=== PATIENT | male | born 1950 | race Caucasian/White ===

== ENCOUNTER 2021-11-12 08:49 | Emergency (ER) | payer MEDICARE ==
[~2021-11-12] VITALS: Ht 177.8 cm; Wt 85.7 kg
--- NOTE | 2021-11-12 09:56 | PHYS DOC ---
"Past Medical History Past Medical History: Diabetes-Type II, Heart Disease, Hypertension Past Surgical History: Coronary Bypass Surgery Additional Past Surgical Histo: intestinal surgery at age 1 Drug Use: None General Adult EDM: Chief Complaint: MECHANICAL FALL HPI: HPI: Patient is a 71 year old male who presents with right periorbital swelling status post mechanical fall yesterday. Patient rates his pain 2/10 and achy in nature. It is nonradiating isolated to the left orbit. Yesterday, patient states he was using a gardening tool to get a piece of trash out of some bushes/weeds. He reports he was able to get the trash out of the yard, however he fell forward. His glasses were on when he fell, but he does not know where they are anymore. He believes that the glasses contused his face. Patient takes daily aspirin, but otherwise does not take blood thinners. Patient's past medical history includes diabetes, hypertension, coronary artery disease. Amanda ent denies dizziness, lightheadedness, frequent falls, abdominal pain, NVD, hematuria, dysuria. Review of Systems: Review of Systems: Constitutional: Denies fever or chills. Eyes: See HPI HENT: Denies nasal congestion or sore throat. Respiratory: Denies cough or shortness of breath. Cardiovascular: Denies chest pain or edema. GI: See HPI : See HPI Musculoskeletal: Denies back pain or joint pain. Integument: Denies rash or other skin lesions. Neurologic: Denies headache, focal weakness or sensory changes. Heart Score: C/O Chest Pain: No Physical Exam: PE: Constitutional: Well developed, well nourished, no acute distress, non-toxic appearance. HENT: Normocephalic, bilateral external ears without deformity or ecchymosis, oropharynx moist, no oral exudates, nose without deformity or discharge. Eyes: Significant periorbital swelling noted on the right side without crepitus or subcutaneous emphysema, PERRLA, EOMI, conjunctiva normal, no discharge. Neck: Normal range of motion, no step-offs, no midline tenderness, no paraspinal tenderness, no stridor. Cardiovascular: Heart rate regular rhythm, no obvious murmur. Lungs & Thorax: Bilateral breath sounds clear to auscultation. Skin: Warm, dry, no erythema, no rash, no abrasion, no laceration. Back: No step-off, no tenderness, no CVA tenderness. Extremities: No tenderness, no cyanosis, no clubbing, ROM intact, no edema. Neurologic: Alert and oriented x4, no focal deficits noted. Current Patient Data: Vital Signs: Vital Signs Date Time Temp Pulse Resp B/P (MAP) Pulse Ox O2 Delivery O2 Flow Rate FiO2 11/12/21 11:30 84 18 155/73 (100) 96 Room Air 11/12/21 11:00 86 18 148/71 (96) 96 Room Air 11/12/21 10:18 88 18 166/77 (106) 95 Room Air 11/12/21 09:48 98 18 130/76 (94) 96 Room Air 11/12/21 09:45 98.0 95 17 179/81 (113) 98 Room Air 98.0 Radiology/Procedures: Radiology/Procedures: PROCEDURE: CT ORBITS WO CONTRAST PQRS Compliance Statement: One or more of the following individualized dose reduction techniques were utilized for this examination: 1. Automated exposure control 2. Adjustment of the mA and/or kV according to patient size 3. Use of iterative reconstruction technique CT HEAD AND C-SPINE WO, CT ORBITS/SELLA WITHOUT CONTRAST Clinical Indication: Reason: fall / Spl. Instructions: / History: Comparison: None. Procedure: Axial images are obtained of the head from the skull base through the vertex without IV contrast. Noncontrast helical CT of the cervical spine was performed. Axial, sagittal, and coronal reconstructions were obtained. Helical CT imaging of the facial bones is performed without IV contrast. Findings: The ventricles and sulci are prominent, consistent with age-related cerebral atrophy. There is periventricular white matter hypoattenuation. This is a nonspecific finding but is commonly due to chronic small vessel ischemic disease in a patient of this age. There is a small old infarct of the left frontal lobe. There is prominent perivascular space versus old lacunar infarct in the right basal ganglia. No mass-effect, midline shift, hemorrhage or obvious acute infarction is identified. Basilar cisterns are patent. Bone windows demonstrate no significant calvarial abnormality. The globes are intact. There is subcutaneous air of the right cheek and the preseptal right orbit. There is acute hemorrhage in the right maxillary sinus. There is mild right orbit post septal air. There is acute traumatic fracture of the right orbital floor measuring approximately 9 mm AP and 6 mm transverse. The fracture is depressed approximately 3 mm. The pterygoid plates and zygomatic arches are intact. There is mucosal thickening of the left maxillary and bilateral ethmoid sinuses. Mastoid air cells are well aerated. There is no evidence of acute fracture or acute malalignment of the cervical spine. There are no perched or jumped facet joints. The facet joints are mildly hypertrophic. The vertebral body height and alignment are maintained. Mild degenerative endplate spurring. The disc spaces are without significant narrowing. Small ossification along the nuchal ligament. There is thyroid goiter mainly on the right with deviation of the trachea to the left. The thyroid is incompletely imaged. The visualized lung apices are clear. IMPRESSION: 1. No acute intracranial abnormality. 2. No acute fracture of the cervical spine. 3. There is acute traumatic fracture of the right orbital floor. The globes are intact. There is mild post septal and severe preseptal right orbit subcutaneous air. 4. Right thyroid goiter, incompletely imaged. Electronically signed by: Emory Murphy MD (11/12/2021 11:25 AM) [id number] Course & Med Decision Making: Course & Med Decision Making Pertinent Labs and Imaging studies reviewed. (See chart for details) Patient is a 71-year-old male who experienced a mechanical fall yesterday, who now has significant right-sided periorbital swelling. Work-up today will include CT head and neck, as well as orbits. CT images show a right-sided orbital floor fracture measuring 9 mm x 6 mm, displaced by 3 mm. Placed a call to ophthalmology for consult, who recommended speaking to Dr. Bhaskar Dumont. Dr. Dumont is an oculoplastic specialist. Dr. Dumont does not have available appointments in the next week. Contacted [facility] and left a message regarding patient referral. Treatment plan will include prophylactic antibiotic treatment with Keflex twice daily x7 days as well as pain control with Tylenol. Patient given return precautions. Patient and his at bedside understand and are agreeable to discharge plan. After patient left the department, I was able to schedule an appointment with [facility] in [place], [place]. They will see him on Monday11/15/21 at 0915. Patient was made aware of time and location of appointment for follow up, and agrees to attend appointment. [place] Disclaimer: [place] Disclaimer: This electronic medical record was generated, in whole or in part, using a voice recognition dictation system. Departure Departure Impression: Primary Impression: Orbital floor fracture Qualified Codes: S02.31XA - Fracture of orbital floor, right side, initial encounter for closed fracture Disposition: HOME / SELF CARE / HOMELESS Condition: STABLE Patient Instructions: Orbital Floor Fracture, Blowout Additional Instructions: [facility] [address] | [place] [address] [address] [facility], [address] | [place] [address] [facility] [address], [place], [address] P: [phone] [place] [address] [facility] [address] [place] [address] P: [phone] [place] [address] [place] [address] P: [phone] Scripts Cephalexin (CEPHALEXIN) 500 Mg Tablet 1 TAB PO BID for 7 Days, #14 TAB Prov: BESSY SINGH 11/12/21 BESSY SINGH Nov 12, 2021 09:56"
--- NOTE | 2021-11-12 11:28 | RAD ---
PQRS Compliance Statement: One or more of the following individualized dose reduction techniques were utilized for this examinat ion: 1. Automated exposure control 2. Adjustment of the mA and/or kV according to patient size 3. Use of iterative reconstruction technique CT HEAD AND C-SPINE WO, CT ORBITS/SELLA WITHOUT CONTRAST Clinical Indication: Reason: fall / Spl. Instructions: / History: Comparison: None. Procedure: Axial images are obtained of the head from the skull base through the vertex without IV co ntrast. Noncontrast helical CT of the cervical spine was performed. Axial, sagittal, and coronal rec onstructions were obtained. Helical CT imaging of the facial bones is performed without IV contrast. Findings: The ventricles and sulci are prominent, consistent with age-related cerebral atrophy. There is periv entricular white matter hypoattenuation. This is a nonspecific finding but is commonly due to chroni c small vessel ischemic disease in a patient of this age. There is a small old infarct of the left fr ontal lobe. There is prominent perivascular space versus old lacunar infarct in the right basal gangl ia. No mass-effect, midline shift, hemorrhage or obvious acute infarction is identified. Basilar cistern s are patent. Bone windows demonstrate no significant calvarial abnormality. The globes are intact. There is subcutaneous air of the right cheek and the preseptal right orbit. Th ere is acute hemorrhage in the right maxillary sinus. There is mild right orbit post septal air. Ther e is acute traumatic fracture of the right orbital floor measuring approximately 9 mm AP and 6 mm tra nsverse. The fracture is depressed approximately 3 mm. The pterygoid plates and zygomatic arches are intact. There is mucosal thickening of the left maxillary and bilateral ethmoid sinuses. Mastoid air cells ar e well aerated. There is no evidence of acute fracture or acute malalignment of the cervical spine. There are no perched or jumped facet joints. The facet joints are mildly hypertrophic. The vertebral body height and alignment are maintained. Mild degenerative endplate spurring. The disc spaces are wi thout significant narrowing. Small ossification along the nuchal ligament. There is thyroid goiter mainly on the right with deviation of the trachea to the left. The thyroid is incompletely imaged. The visualized lung apices are clear. IMPRESSION: 1. No acute intracranial abnormality. 2. No acute fracture of the cervical spine. 3. There is acute traumatic fracture of the right orbital floor. The globes are intact. There is mil d post septal and severe preseptal right orbit subcutaneous air. 4. Right thyroid goiter, incompletely imaged. Electronically signed by: Emory Murphy MD (11/12/2021 11:25 AM) [id number]
[2021-11-12 11:30] VITALS: BP 155/73
[2021-11-12] MEDS ORDERED: CEPH500T PO (12:02)
== END 2021-11-12 12:41 | disposition home or self-care (01) ==
LOC: ER 08:49
DX: S02.31XA Fracture of orbital floor, right side, initial encounter for closed fracture (principal); I11.9 Hypertensive heart disease without heart failure; E11.9 Type 2 diabetes mellitus without complications; E04.9 Nontoxic goiter, unspecified; Z95.1 Presence of aortocoronary bypass graft; I25.10 Atherosclerotic heart disease of native coronary artery without angina pectoris; W18.39XA Other fall on same level, initial encounter; Y93.89 Activity, other specified; Y92.89 Other specified places as the place of occurrence of the external cause; Y99.8 Other external cause status
CPT/HCPCS: 70450; 70480; 72125; 99284-25

== ENCOUNTER 2021-11-17 01:01 | Inpatient (IN) | payer MEDICARE ==
[~2021-11-17] VITALS: Ht 172.7 cm; Wt 65.0 kg
[~2021-11-17 01:01] MED LIST: CEPH500T PO
[2021-11-17 01:29] LABS: BASO % 0 % (0-3); EOS % 0 % (0-3); HEMATOCRIT 40.5 % (39.0-53.0); HEMOGLOBIN 13.8 g/dL (13.0-17.5); LYMPH # 1.2 x10^3/uL (1.0-4.8); LYMPH % 8 % (24-48); MEAN CORPUSCULAR HEMOGLOBIN 31 pg (25-35); MEAN CORPUSCULAR HGB CONC 34 g/dL (31-37); MEAN CORPUSCULAR VOLUME 90 fL (79-100); MONO # 0.6 x10^3/uL (0.0-1.1); MONO % 4 % (0-9); NEUT # 14.2 x10^3/uL (1.8-7.7); NEUT % 88 % (31-73); PLATELET COUNT 256 x10^3/uL (140-400); RED BLOOD COUNT 4.48 x10^6/uL (4.30-5.70); RED CELL DISTRIBUTION WIDTH 12.8 % (11.5-14.5); WHITE BLOOD COUNT 16.2 x10^3/uL (4.0-11.0)
[2021-11-17] MEDS ORDERED: IV NORMAL SALINE 1000ML BAG 1,000 ML IV ONE (01:30)
[2021-11-17] MEDS ORDERED: ONDANSETRON PF 4 MG/2 ML VIAL. IVP ONE (01:30)
[2021-11-17 01:40] LABS: CALCIUM 10.3 mg/dL (8.5-10.1); CREATININE 1.5 mg/dL (0.7-1.3); GFR 45.9; POTASSIUM 3.6 mmol/L (3.5-5.1)
[2021-11-17 01:45] LABS: ALBUMIN 3.7 g/dL (3.4-5.0); ALBUMIN/GLOBULIN RATIO 0.9 (1.0-1.7); TOTAL BILIRUBIN 0.6 mg/dL (0.2-1.0); TOTAL PROTEIN 7.7 g/dL (6.4-8.2)
[2021-11-17] MEDS ORDERED: CONTRAST GIVEN. MC PRN (02:00)
[2021-11-17 02:03] LABS: % LYMPHS 7 % (24-48); % MONOS 4 % (0-10); % SEGS 89 % (35-66); PLT ESTIMATE ADEQUATE (ADEQUATE); TOXIC GRANULATION SLIGHT
[2021-11-17 02:14] LABS: INFLUENZA A PATIENT NEGATIVE (NEGATIVE); INFLUENZA B PATIENT NEGATIVE (NEGATIVE)
[2021-11-17 02:29] LABS: PROTHROMBIN TIME PATIENT 13.3 SEC (11.7-14.0)
[2021-11-17] MEDS ORDERED: IOHEXOL 300 MG/ML 100ML VIAL. IV ONE (02:30)
[2021-11-17] MEDS ORDERED: PROCHLORPERAZINE 10 MG/2 ML VIAL. IV ONE (02:30)
[2021-11-17] MEDS ORDERED: diphenhydrAMINE 50 MG/ML VIAL IVP ONE (02:30)
[2021-11-17] MEDS ORDERED: IV NORMAL SALINE 500ML BAG 500 ML IV ONE (03:00)
--- NOTE | 2021-11-17 03:19 | RAD ---
EXAM: CHEST ONE VIEW. HISTORY: Altered mental status, weakness. COMPARISON: None. FINDINGS: A frontal view of the chest is obtained. There are changes of coronary artery bypass grafti ng. 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 There is mild atelectasis in the left base. There is no pneumothorax or pleural effusion. The heart i s not enlarged. IMPRESSION: 1. 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 Correlate for such history. 2. Mild left basilar atelectasis or infiltrate Electronically signed by: Miguelina Smith MD (11/17/2021 3:17 AM) [facility]
--- NOTE | 2021-11-17 03:24 | RAD ---
EXAM: CT HEAD WITHOUT CONTRAST. HISTORY: Altered mental status, weakness. TECHNIQUE: Computed tomography of the head was performed without intravenous contrast. One or more of the following individualized dose reduction techniques were utilized for this examination: 1. Automated exposure control. 2. Adjustment of the mA and/or kV according to patient size. 3. Use of iterative reconstruction technique. COMPARISON: 11/12/2021. FINDINGS: There is no intracranial hemorrhage. There are chronic lacunar infarcts within the right ba aravind ganglia. There is mild chronic microangiopathic white matter change elsewhere. Prominence of the lateral ventricles and hemispheric sulci indicates moderate atrophy. Mucus retention cysts are noted in the right maxillary sinus. Right orbital emphysema is decreased si nce the prior study. The temporal bones are unremarkable. The calvarium reveals no suspicious lesions . There are atherosclerotic calcifications of the internal carotid and vertebral arteries. IMPRESSION: 1. No acute intracranial findings. 2. Chronic right basal ganglia lacunar infarcts. Moderate atrophy. Electronically signed by: Miguelina Smith MD (11/17/2021 3:21 AM) [facility]
--- NOTE | 2021-11-17 03:59 | RAD ---
EXAM: CT ABDOMEN/PELVIS WITH CONTRAST. HISTORY: Altered mental status, upper abdominal pain, weakness. TECHNIQUE: Computed tomography of the abdomen and pelvis was performed after the intravenous administ ration of iodinated contrast. One or more of the following individualized dose reduction techniques w ere utilized for this examination: 1. Automated exposure control. 2. Adjustment of the mA and/or kV according to patient size. 3. Use of iterative reconstruction technique. COMPARISON: None. FINDINGS: Lung windows through the visualized portions of the bases reveal mild atelectasis. There is mild wall thickening of the distal esophagus. Bone windows reveal no suspicious lesions. Hypoattenuation of the hepatic parenchyma indicates at least moderate diffuse hepatic steatosis. A ga llstone is noted. The pancreas, adrenal glands, spleen and kidneys are unremarkable. Infrarenal abdominal aortic stenosis is at least mild with minimum luminal diameter 1.0 cm. There brianna ears to be relatively severe stenosis of the right external iliac artery. The prostate is moderately enlarged at 5.5 x 4.6 cm. There are no pathologically enlarged lymph nodes . There is no small bowel obstruction. There is no evidence of appendicitis. IMPRESSION: 1. Diffuse hepatic steatosis. 2. Cholelithiasis. 3. Infrarenal abdominal aortic stenosis. Additional stenosis is suspected in the right external iliac artery. 4. Wall thickening of the distal esophagus. Correlate for esophagitis. Electronically signed by: Miguelina Smith MD (11/17/2021 3:57 AM) [facility]
[2021-11-17 04:23] LABS: BILIRUBIN,URINE NEGATIVE (NEG); CLARITY,URINE CLEAR; COLOR,URINE YELLOW; NITRITE,URINE NEGATIVE (NEG); PH,URINE 5.5 (<5.0-8.0); PROTEIN,URINE NEGATIVE (NEG-TRACE); UROBILINOGEN,URINE 0.2 mg/dL (0.2 mg/dL)
[2021-11-17 04:31] LABS: BACTERIA,URINE 0 /HPF (0-FEW); RBC,URINE 0 /HPF (0-2); WBC,URINE 0 /HPF (0-4)
--- NOTE | 2021-11-17 06:10 | EKG ---
[facility] [address] [place] [address] Test Date: 2021-11-17 Test Time: 01:16:18 Pat Name: BILLIE MEJIA Department: Room: Gender: M Spray Machine Operator: : [id number] Requested By: DAVID CARDOZA Order Number: [id number] Reading MD: Alexis Shelton MD Measurements Intervals [place] Rate: 85 P: 48 AR: 210 QRS: -1 QRSD: 88 T: 58 QT: 350 QTc: 417 Interpretive Statements SINUS RHYTHM NON-SPECIFIC ST/T CHANGES Electronically Signed On 11-22-2021 14:56:40 [employer] by Alexis Shelton MD
--- NOTE | 2021-11-17 06:17 | PHYS DOC ---
Past Medical History Past Medical History: Diabetes-Type II, Heart Disease, Hypertension Past Surgical History: Coronary Bypass Surgery Additional Past Surgical Histo: intestinal surgery at age 1 Smoking Status: Never Smoker Alcohol Use: Rarely Drug Use: None Adult General Chief Complaint Chief Complaint: WEAKNESS/GENERALIZED HPI HPI The patient is a 71-year-old male with a history of hypertension, hyperlipidemia and coronary artery disease status post CABG. 3 days ago he had a fall onto his face at home, sustaining an orbital fracture for which he has followed up with oculoplastics at [place]. He is on sinus precautions for that injury for now. Mr. Collins presents for evaluation of generalized weakness and mild confusion at home over the last 24 hours or so. states that he has been asking perseverative questions, has had trouble getting dressed and has been extremely forgetful and confused. She states this is not normal for him. Objectively here in the emergency department he is alert and oriented x4 but is a little hesitant in responses to questions. 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 Patient's only complaint to me is of bilateral upper quadrant abdominal discomfort, mild. He has had no fevers, nausea or vomiting, upper respiratory congestion/rhinorrhea, cough, sore throat, shortness of breath or chest pain of any kind, flank pain, midline back pain, dysuria, hematuria, polyuria or oliguria, changes in bowel habits. He denies headache, focal or lateralizing weakness, numbness or tingling, neck stiffness/pain/meningismus, vision changes. No new injury or trauma to his head since the fall a few days ago (neuroimaging at that time was unremarkable). Review of Systems Review of Systems A 12 point review of systems was completed and was negative except where noted in HPI above. Current Medications Current Medications Current Medications Medications (Trade) Dose Ordered Sig/Lynn Start Time Stop Time Status Last Admin Dose Admin Diphenhydramine HCl (Benadryl) 25 mg 1X ONCE 11/17/21 02:30 11/17/21 02:31 DC 11/17/21 02:18 25 MG Info (CONTRAST GIVEN -- Rx MONITORING) 1 each PRN DAILY PRN 11/17/21 02:00 11/19/21 01:59 Iohexol (Omnipaque 300 Mg/ml) 60 ml 1X ONCE 11/17/21 02:30 11/17/21 02:31 DC Ondansetron HCl (Zofran) 4 mg 1X ONCE 11/17/21 01:30 11/17/21 01:31 DC 11/17/21 01:26 4 MG Prochlorperazine Edisylate (Compazine) 10 mg 1X ONCE 11/17/21 02:30 11/17/21 02:31 DC 11/17/21 02:18 10 MG Sodium Chloride 500 ml @ 500 mls/hr 1X ONCE 11/17/21 03:00 11/17/21 03:59 DC 11/17/21 04:55 500 MLS/HR Allergies Allergies Allergies Coded Allergies Type Severity Reaction Last Updated Verified codeine Allergy Intermediate Rash 11/12/21 Yes Physical Exam Physical Exam Elderly male appearing nontoxic and in no acute distress. Head is normocephalic and atraumatic aside from resolving periorbital contusion on the right. Neck is supple and nontender. Patient ranges his neck fully in all dimensions without discomfort or distress and no stiffness/rigidity/meningismus is seen. Kernig's and Brudzinski's sign negative. Oropharynx is moist. Lungs are clear to auscultation at all stations. There is normal S1 and S2 without rubs or gallops and capillary refill is appropriate, less than 2 seconds globally. Abdomen is soft and nondistended with mild focal epigastric tend erness to palpation without rebound or guarding. Skin is warm and dry without cyanosis, clubbing or edema. Psychiatrically, the patient demonstrates appropriate mood and affect and is alert. Neurologically, cranial nerves II through XII are intact and there are no lateralizing deficits seen. Speech is normal. Language is normal. Coordination is normal. There is no dysmetria with nose [id number] bilaterally. Strength is 5 out of 5 in all joints of bilateral upper and lower extremities. Sensation is intact to light touch in bilateral upper and lower extremities. Ambulation testing is deferred. Patient is alert and oriented x4. He seems somewhat hesitant and unsure of himself when answering questions, and has a little paucity of speech. Current Patient Data Vital Signs Vital Signs Date Time Temp Pulse Resp B/P (MAP) Pulse Ox O2 Delivery O2 Flow Rate FiO2 11/17/21 04:30 90 20 143/67 (92) 94 Room Air 11/17/21 01:11 97.5 97.5 Lab Values Laboratory Tests Test 11/17/21 01:22 11/17/21 01:45 11/17/21 02:14 11/17/21 04:15 White Blood Count 16.2 x10^3/uL (4.0-11.0) H Red Blood Count 4.48 x10^6/uL (4.30-5.70) Hemoglobin 13.8 g/dL (13.0-17.5) Hematocrit 40.5 % (39.0-53.0) Mean Corpuscular Volume 90 fL (79-100) Mean Corpuscular Hemoglobin 31 pg (25-35) Mean Corpuscular Hemoglobin Concent 34 g/dL (31-37) Red Cell Distribution Width 12.8 % (11.5-14.5) Platelet Count 256 x10^3/uL (140-400) Neutrophils (%) (Auto) 88 % (31-73) H Lymphocytes (%) (Auto) 8 % (24-48) L Monocytes (%) (Auto) 4 % (0-9) Eosinophils (%) (Auto) 0 % (0-3) Basophils (%) (Auto) 0 % (0-3) Neutrophils # (Auto) 14.2 x10^3/uL (1.8-7.7) H Lymphocytes # (Auto) 1.2 x10^3/uL (1.0-4.8) Monocytes # (Auto) 0.6 x10^3/uL (0.0-1.1) Eosinophils # (Auto) 0.0 x10^3/uL (0.0-0.7) Basophils # (Auto) 0.0 x10^3/uL (0.0-0.2) Segmented Neutrophils % 89 % (35-66) H Lymphocytes % 7 % (24-48) L Monocytes % 4 % (0-10) Toxic Granulation Slight Platelet Estimate Adequate (ADEQUATE) Sodium Level 133 mmol/L (136-145) L Potassium Level 3.6 mmol/L (3.5-5.1) Chloride Level 95 mmol/L (98-107) L Carbon Dioxide Level 27 mmol/L (21-32) Anion Gap 11 (6-14) Blood Urea Nitrogen 32 mg/dL (8-26) H Creatinine 1.5 mg/dL (0.7-1.3) H Estimated GFR (Cockcroft-Gault) 45.9 BUN/Creatinine Ratio 21 (6-20) H Glucose Level 157 mg/dL (70-99) H Calcium Level 10.3 mg/dL (8.5-10.1) H Total Bilirubin 0.6 mg/dL (0.2-1.0) Aspartate Amino Transferase (AST) 22 U/L (15-37) Alanine Aminotransferase (ALT) 44 U/L (16-63) Alkaline Phosphatase 72 U/L (46-116) Troponin I High Sensitivity 6 ng/L (4-75) Total Protein 7.7 g/dL (6.4-8.2) Albumin 3.7 g/dL (3.4-5.0) Albumin/Globulin Ratio 0.9 (1.0-1.7) L Lipase 377 U/L (73-393) Influenza Type A Antigen Negative (NEGATIVE) Influenza Type B Antigen Negative (NEGATIVE) SARS-CoV-2 Antigen (Rapid) Negative (NEGATIVE) Prothrombin Time 13.3 SEC (11.7-14.0) Prothrombin Time INR 1.0 (0.8-1.1) Activated Partial Thromboplast Time 31 SEC (24-38) Urine Collection Type Void Urine Color Yellow Urine Clarity Clear Urine pH 5.5 (<5.0-8.0) Urine Specific Rombauer >=1.030 (1.000-1.030) Urine Protein Negative mg/dL (NEG-TRACE) Urine Glucose (UA) Negative mg/dL (NEG) Urine Ketones (Stick) Trace mg/dL (NEG) Urine Blood Negative (NEG) Urine Nitrite Negative (NEG) Urine Bilirubin Negative (NEG) Urine Urobilinogen Dipstick 0.2 mg/dL (0.2 mg/dL) Urine Leukocyte Esterase Negative (NEG) Urine RBC 0 /HPF (0-2) Urine WBC 0 /HPF (0-4) Urine Squamous Epithelial Cells Occ /LPF Urine Bacteria 0 /HPF (0-FEW) Urine Mucus Slight /LPF Laboratory Tests 11/17/21 01:22 Laboratory Tests 11/17/21 01:22 EKG EKG Sinus rhythm, rate 85, no acute ST elevation or depression, first-degree AV block, MS 210, QRS 88, QTc 417, EP interpretation. Nonischemic tracing. Radiology/Procedures Radiology/Procedures EXAM: CT HEAD WITHOUT CONTRAST. HISTORY: Altered mental status, weakness. TECHNIQUE: Computed tomography of the head was performed without intravenous contrast. One or more of the following individualized dose reduction techniques were utilized for this examination: 1. Automated exposure control. 2. Adjustment of the mA and/or kV according to patient size. 3. Use of iterative reconstruction technique. COMPARISON: 11/12/2021. FINDINGS: There is no intracranial hemorrhage. There are chronic lacunar infarcts within the right basal ganglia. There is mild chronic microangiopathic white matter change elsewhere. Prominence of the lateral ventricles and hemispheric sulci indicates moderate atrophy. Mucus retention cysts are noted in the right maxillary sinus. 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 The temporal bones are unremarkable. The calvarium reveals no suspicious lesions. There are atherosclerotic calcifications of the internal carotid and vertebral arteries. IMPRESSION: 1. No acute intracranial findings. 2. Chronic right basal ganglia lacunar infarcts. Moderate atrophy. Electronically signed by: Miguelina Smith MD (11/17/2021 3:21 AM) [facility] DICTATED and SIGNED BY: JENNIE SMITH MD DATE: 11/17/[id number] 0 EXAM: CHEST ONE VIEW. HISTORY: Altered mental status, weakness. COMPARISON: None. FINDINGS: A frontal view of the chest is obtained. There are changes of coronary artery bypass grafting. 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 There is mild atelectasis in the left base. There is no pneumothorax or pleural effusion. The heart is not enlarged. IMPRESSION: 1. 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 Correlate for such history. 2. Mild left basilar atelectasis or infiltrate Electronically signed by: Miguelina Smith MD (11/17/2021 3:17 AM) [facility] DICTATED and SIGNED BY: JENNIE SMITH MD DATE: 11/17/21 [id number] 0 EXAM: CT ABDOMEN/PELVIS WITH CONTRAST. HISTORY: Altered mental status, upper abdominal pain, weakness. TECHNIQUE: Computed tomography of the abdomen and pelvis was performed after the intravenous administration of iodinated contrast. One or more of the following individualized dose reduction techniques were utilized for this examination: 1. Automated exposure control. 2. Adjustment of the mA and/or kV according to patient size. 3. Use of iterative reconstruction technique. COMPARISON: None. FINDINGS: Lung windows through the visualized portions of the bases reveal mild atelectasis. There is mild wall thickening of the distal esophagus. Bone windows reveal no suspicious lesions. Hypoattenuation of the hepatic parenchyma indicates at least moderate diffuse hepatic steatosis. A gallstone is noted. The pancreas, adrenal glands, spleen and kidneys are unremarkable. Infrarenal abdominal aortic stenosis is at least mild with minimum luminal diameter 1.0 cm. There appears to be relatively severe stenosis of the right external iliac artery. The prostate is moderately enlarged at 5.5 x 4.6 cm. There are no pathologically enlarged lymph nodes. There is no small bowel obstruction. There is no evidence of appendicitis. IMPRESSION: 1. Diffuse hepatic steatosis. 2. Cholelithiasis. 3. Infrarenal abdominal aortic stenosis. Additional stenosis is suspected in the right external iliac artery. 4. Wall thickening of the distal esophagus. Correlate for esophagitis. Electronically signed by: Miguelina Smith MD (11/17/2021 3:57 AM) [facility] DICTATED and SIGNED BY: JENNIE SMITH MD DATE: 11/17/21 [id number] 0 Course & Med Decision Making Course & Med Decision Making Large work-up is as above, remarkable for leukocytosis without obvious infectious process identified, incidental finding of a right paratracheal mass on chest x-ray which patient's states is new to them, incidental findings in the head, abdomen and pelvis on advanced imaging but no acute process seen in these areas. Patient has some mild acute renal insufficiency and has received some IV fluids. Urinalysis negative. Overall, no clear etiology for the patient's mild acute encephalopathy. Will bring in for further care. After fluids it may be helpful to obtain contrasted CT chest to further characterize the patient's upper chest mass. Graciously accepted for admission by hospitalist Dr. Powers. [place] Disclaimer [place] Disclaimer This electronic medical record was generated, in whole or in part, using a voice recognition dictation system. Departure Departure Impression: Primary Impression: Acute encephalopathy Additional Impressions: Acute renal insufficiency Chest mass Right orbital fracture Disposition: 09 ADMITTED INPATIENT Admitting Physician: HIMS Condition: STABLE Referrals: TATE AVILA MD (PCP) Problem Qualifiers Additional Impressions: Right orbital fracture Encounter type: subsequent encounter Fracture type: closed Fracture healing: with routine healing Qualified Codes: S02.85XD - Fracture of orbit, unspecified, subsequent encounter for fracture with routine healing DAVID CARDOZA MD Nov 17, 2021 06:16
[2021-11-17] MEDS ORDERED: ONDANSETRON PF 4 MG/2 ML VIAL. IVP PRN ×2 (06:30→12:30)
[2021-11-17] MEDS ORDERED: ACETAMINOPHEN 325 MG TABLET. PO PRN ×2 (06:30→12:30)
[2021-11-17 09:03] VITALS: BP 145/58
[2021-11-17] MEDS: IV NORMAL SALINE 1000ML BAG 1,000 ML IV SCH (10:11)
[2021-11-17] MEDS ORDERED: METF500T16 PO (10:15)
[2021-11-17] MEDS ORDERED: UBID100T5 PO (10:17)
[2021-11-17] MEDS ORDERED: CARV12.511 PO (10:17)
[2021-11-17] MEDS ORDERED: LOSA100T14 PO (10:20)
[2021-11-17] MEDS ORDERED: EZET10TA20 PO (10:31)
[2021-11-17] MEDS ORDERED: CHOL10004 PO (10:31)
[2021-11-17] MEDS ORDERED: SOLI5TAB2 PO (10:31)
[2021-11-17] MEDS ORDERED: CHLO25TA10 PO (10:31)
[2021-11-17 11:00] VITALS: BP 137/61
--- NOTE | 2021-11-17 12:00 | NUR ---
Admission Note Luther Collins 71/ male admitted due to encephalopathy arrived on the unit at 0800 via wheelchair on room air accompanied by the patient's spouse. He's alert, oriented x 1, and denies pain. His VS were stable. Home medications reconciled and his belongings checked. Fall precautions were put in place and call light placed within reach.
--- NOTE | 2021-11-17 12:32 | PDOC1 ---
History and Physical Date of Admission Date of Admission DATE: 11/17/21 TIME: 12:31 Identification/Chief Complaint Chief Complaint Weakness, confusion, falls Source Source: Caregiver, Chart review History of Present Illness History of Present Illness Mr Dennis White" is a 71yo male with PMHx HTN, DM2, HLD, CAD s/p CABG who presents to ED with worsening weakness and confusion at home. He has been progressively more confused since his fall and awakened on 11/16/2021 more confused and his went to the grocery store came back in all of his medications for the week were missing in he said he thinks he threw them on the table and took all of them. He was seen in the ED for fall 3 onto his face at home on 11/12/2021 and had a right orbital floor fracture for which he has followed up with oculoplastics at [facility] per ED. he has been forgetful having difficulty getting dressed and slow to respond. His only complaint ED was abdominal pain. notes he has a strong cardiac family history and had a CABG in 2009 [facility] and had his brother age 45 of cardiac disease. They moved from [place] in 2019 and she has noted his health has been declining since then. He has had increased frequency of falls. She notes is recently as 2017 he had had this problem and is previously been worked up for a CVA she thinks he had an MRI at [facility] previously and was told it was negative for CVA but the family is concerned that he probably did have a stroke sometime in the last several years. Labs WBC 16.2, Hb 13.8, platelets 256, INR 1, rapid influenza and rapid COVID-19 negative COVID-19 PCR negative, NA 133, K3.6, BUN 32, CR 1.5, glucose 157, lactate 1.8, calcium 10.3, albumin 3.7, lipase 377, LFTs within normal laboratory limits, high-sensitivity troponin is 6, urinalysis bland. EKG sinus rhythm rate of 85 bpm with leftward axis no ST segment elevations or depressions no TWI. CT head with no acute abnormality possibly less emphysematous changes and right inferior orbit and chronic. Right basal ganglia infarct. Chest radiograph with paratracheal mass left tracheal displacement CT abdomen pelvis with external iliac artery stenosis hepatic steatosis. Prostatomegaly. Post void residual high with straight catheter had 770 cc urine out. Admitted for further care Past Medical History Cardiovascular: CAD, HTN, Hyperlipidemia Endocrine: Diabetes Past Surgical History Past Surgical History: CABG (2009 - [facility]), Other (intususseption at age 1) Family History Family History: Coronary Artery Disease (Brother, father), Diabetes Social History Smoke: Quit (2001) ALCOHOL: none Drugs: None Current Problem List Problem List Problems Medical Problems: (1) Acute encephalopathy Status: Acute (2) Acute renal insufficiency Status: Acute (3) Chest mass Status: Acute (4) Right orbital fracture Status: Acute Current Medications Current Medications Current Medications Ondansetron HCl (Zofran) 4 mg 1X ONCE IVP Last administered on 11/17/21at 01:26; Start 11/17/21 at 01:30; Stop 11/17/21 at 01:31; Status DC Sodium Chloride 1,000 ml @ 1,000 mls/hr 1X ONCE IV Last administered on 11/17/21at 01:25; Start 11/17/21 at 01:30; Stop 11/17/21 at 02:29; Status DC Iohexol (Omnipaque 300 Mg/ml) 60 ml 1X ONCE IV ; Start 11/17/21 at 02:30; Stop 11/17/21 at 02:31; Status DC Info (CONTRAST GIVEN -- Rx MONITORING) 1 each PRN DAILY PRN MC SEE COMMENTS; Start 11/17/21 at 02:00; Stop 11/19/21 at 01:59 Prochlorperazine Edisylate (Compazine) 10 mg 1X ONCE IV Last administered on 11/17/21at 02:18; Start 11/17/21 at 02:30; Stop 11/17/21 at 02:31; Status DC Diphenhydramine HCl (Benadryl) 25 mg 1X ONCE IVP Last administered on 1at 02:18; Start 11/17/21 at 02:30; Stop 11/17/21 at 02:31; Status DC Sodium Chloride 500 ml @ 500 mls/hr 1X ONCE IV Last administered on 11/17/21at 04:55; Start 11/17/21 at 03:00; Stop 11/17/21 at 03:59; Status DC Ondansetron HCl (Zofran) 4 mg PRN Q8HRS PRN IVP NAUSEA/VOMITING 1ST CHOICE; Start 11/17/21 at 06:30; Stop 11/18/21 at 06:29 Sodium Chloride 1,000 ml @ 85 mls/hr [id number] IV Last administered on 11/17/21at 10:11; Start 11/17/21 at 07:00; Stop 11/18/21 at 06:59 Acetaminophen (Tylenol) 650 mg PRN Q4HRS PRN PO FEVER > 100.3'F; Start 11/17/21 at 06:30; Stop 11/18/21 at 06:29 Active Scripts Active Cephalexin 500 Mg Tablet 1 Tab PO BID 7 Days Reported Vesicare (Solifenacin Succinate) 5 Mg Tablet 1 Tab PO DAILY 30 Days Chlorthalidone (Chlorthalidone) 25 Mg Tablet 25 Mg PO DAILY Zetia (Ezetimibe) 10 Mg Tablet 1 Tab PO DAILY 30 Days Vitamin D3 (Vitamin D) 25 Mcg Tablet 50 Mcg PO DAILY 1,000 UNITS = 25 MCG Losartan Potassium 100 Mg Tablet 100 Mg PO DAILY Carvedilol (Carvedilol) 12.5 Mg Tablet 12.5 Mg PO BIDWMEALS Coenzyme Q10 (Ubidecarenone) 100 Mg Tablet 1 Tab PO DAILY 30 Days Metformin Hcl 500 Mg Tablet 500 Mg PO DAILY Allergies Allergies: Coded Allergies: codeine (Verified Allergy, Intermediate, Rash, 11/12/21) ROS General: YES: Fatigue, Malaise PSYCHOLOGICAL ROS: YES: Behavioral Disorder, Concentration difficultie, Disorientation, Hallucinations, Irritablity, Memory difficulties Eyes: No Blurry vision, No Decreased vision, No Double vision, No Dry eyes, No Excessive tearing, No Eye Pain, No Itchy Eyes, No Loss of vision, No Photophobia, No Scotomata, No Uses contacts, No Uses glasses, No Other HEENT: YES: Heacaches; No: Visual Changes, Hearing change, Nasal congestion, Nasal discharge, Oral lesions, Sinus pain, Sore Throat, Epistaxis, Sneezing, Snoring, Tinnitus, Vertigo, Vocal changes, Other ALLERGY AND IMMUNOLOGY: No: Hives, Insect Bite Sensitivity, Itchy/Watery Eyes, Nasal Congestion, Post Nasal Drip, Seasonal Allergies, Other Hematological and Lymphatic: No: Bleeding Problems, Blood Clots, Blood Transfusions, Brusing, Night Sweats, Pallor, Swollen Lymph Nodes, Other ENDOCRINE: No: Breast Changes, Galactorrhea, Hair Pattern Changes, Hot Flashes, Malaise/lethargy, Mood Swings, Palpitations, Polydipsia/polyuria, Skin Changes, Temperature Intolerance, Unexpected Weight Changes, Other Breast: No New/Changing Breast Lumps, No Nipple changes, No Nipple discharge, No Other Respiratory: No: Cough, Hemoptysis, Orthopnea, Pleuritic Pain, Shortness of breath, SOB with excertion, Sputum Changes, Stridor, Tachypnea, Wheezing, Other Cardiovascular: No Chest Pain, No Palpitations, No Orthopnea, No Paroxysmal Noc. Dyspnea, No Edema, No Lt Headedness, No Other Gastrointestinal: Yes Abdominal Pain; No Nausea, No Vomiting, No Diarrhea, No Constipation, No Melena, No Hematochezia, No Other Genitourinary: YES Frequency, YES Retention; No Dysuria, No Incontinence, No Hematuria, No Discharge, No Urgency, No Pain, No Flank Pain, No Other, No , No , No , No , No , No , No Musculoskeletal: Yes Gait Disturbance; No Joint Pain, No Joint Stiffness, No Joint Swelling, No Muscle Pain, No Muscular Weakness, No Pain In:, No Swelling In:, No Other Neurological: Yes Confusion, Yes Gait Disturbance, Yes Impaired Coord/balance, Yes Memory Loss; No Behavorial Changes, No Bowel/Bladder ControlChng, No Dizziness, No Headaches, No Numbness/Tingling, No Seizures, No Speech Problems, No Tremors, No Visual Changes, No Weakness, No Other Skin: No Dry Skin, No Eczema, No Hair Changes, No Lumps, No Mole Changes, No Mottling, No Nail Changes, No Pruritus, No Rash, No Skin Lesion Changes, No Other, No Acne Physical Exam General: Cooperative, No acute distress HEENT: PERRLA, EOMI, Mucous membr. moist/pink, Other (Right inferior orbit bruising. Large goiter) Lungs: Clear to auscultation, Normal air movement Heart: S1S2, RRR, no thrills, no rubs, no gallops, no murmurs Abdomen: Normal bowel sounds, Soft, No tenderness, No hepatosplenomegaly, No masses Rectal Exam: not examined Extremities: No clubbing, No cyanosis, No edema, Normal pulses, No tenderness/swelling Skin: No rashes, No breakdown, No significant lesion Neuro: Normal tone, Sensation intact, Cranial nerves 3-12 NL, Reflexes 2+, Other (Moving all 4 limbs) Psych/Mental Status: Other (Confused, hallucinating. Intermittently alert. al contusion on the right. Neck is supple and nontender. Patient ranges his neck fully in all dimensions without discomfort or distress and no stif fness/rigidity/meningismus is seen. Kernig's and Brudzinski's sign negative.) Vitals Vitals Vital Signs Date Time Temp Pulse Resp B/P (MAP) Pulse Ox O2 Delivery O2 Flow Rate FiO2 11/17/21 11:00 98.7 82 18 137/61 (86) 95 Room Air 98.7 Labs Labs Laboratory Tests Test 11/17/21 01:22 11/17/21 01:45 11/17/21 02:14 11/17/21 04:15 White Blood Count 16.2 x10^3/uL (4.0-11.0) Red Blood Count 4.48 x10^6/uL (4.30-5.70) Hemoglobin 13.8 g/dL (13.0-17.5) Hematocrit 40.5 % (39.0-53.0) Mean Corpuscular Volume 90 fL (79-100) Mean Corpuscular Hemoglobin 31 pg (25-35) Mean Corpuscular Hemoglobin Concent 34 g/dL (31-37) Red Cell Distribution Width 12.8 % (11.5-14.5) Platelet Count 256 x10^3/uL (140-400) Neutrophils (%) (Auto) 88 % (31-73) Lymphocytes (%) (Auto) 8 % (24-48) Monocytes (%) (Auto) 4 % (0-9) Eosinophils (%) (Auto) 0 % (0-3) Basophils (%) (Auto) 0 % (0-3) Neutrophils # (Auto) 14.2 x10^3/uL (1.8-7.7) Lymphocytes # (Auto) 1.2 x10^3/uL (1.0-4.8) Monocytes # (Auto) 0.6 x10^3/uL (0.0-1.1) Eosinophils # (Auto) 0.0 x10^3/uL (0.0-0.7) Basophils # (Auto) 0.0 x10^3/uL (0.0-0.2) Segmented Neutrophils % 89 % (35-66) Lymphocytes % 7 % (24-48) Monocytes % 4 % (0-10) Toxic Granulation Slight Platelet Estimate Adequate (ADEQUATE) Sodium Level 133 mmol/L (136-145) Potassium Level 3.6 mmol/L (3.5-5.1) Chloride Level 95 mmol/L (98-107) Carbon Dioxide Level 27 mmol/L (21-32) Anion Gap 11 (6-14) Blood Urea Nitrogen 32 mg/dL (8-26) Creatinine 1.5 mg/dL (0.7-1.3) Estimated GFR (Cockcroft-Gault) 45.9 BUN/Creatinine Ratio 21 (6-20) Glucose Level 157 mg/dL (70-99) Lactic Acid Level 1.8 mmol/L (0.4-2.0) Calcium Level 10.3 mg/dL (8.5-10.1) Total Bilirubin 0.6 mg/dL (0.2-1.0) Aspartate Amino Transf (AST/SGOT) 22 U/L (15-37) Alanine Aminotransferase (ALT/SGPT) 44 U/L (16-63) Alkaline Phosphatase 72 U/L (46-116) Troponin I High Sensitivity 6 ng/L (4-75) Total Protein 7.7 g/dL (6.4-8.2) Albumin 3.7 g/dL (3.4-5.0) Albumin/Globulin Ratio 0.9 (1.0-1.7) Lipase 377 U/L (73-393) Influenza Type A Antigen Negative (NEGATIVE) Influenza Type B Antigen Negative (NEGATIVE) SARS-CoV-2 RNA (LUI) Negative (Negative) SARS-CoV-2 Antigen (Rapid) Negative (NEGATIVE) Prothrombin Time 13.3 SEC (11.7-14.0) Prothromb Time International Ratio 1.0 (0.8-1.1) Activated Partial Thromboplast Time 31 SEC (24-38) Urine Collection Type Void Urine Color Yellow Urine Clarity Clear Urine pH 5.5 (<5.0-8.0) Urine Specific Sells >=1.030 (1.000-1.030) Urine Protein Negative mg/dL (NEG-TRACE) Urine Glucose (UA) Negative mg/dL (NEG) Urine Ketones (Stick) Trace mg/dL (NEG) Urine Blood Negative (NEG) Urine Nitrite Negative (NEG) Urine Bilirubin Negative (NEG) Urine Urobilinogen Dipstick 0.2 mg/dL (0.2 mg/dL) Urine Leukocyte Esterase Negative (NEG) Urine RBC 0 /HPF (0-2) Urine WBC 0 /HPF (0-4) Urine Squamous Epithelial Cells Occ /LPF Urine Bacteria 0 /HPF (0-FEW) Urine Mucus Slight /LPF Test 11/17/21 08:49 11/17/21 12:05 Glucose (Fingerstick) 158 mg/dL (70-99) 144 mg/dL (70-99) Laboratory Tests Test 11/17/21 01:22 11/17/21 01:45 11/17/21 02:14 11/17/21 04:15 White Blood Count 16.2 x10^3/uL (4.0-11.0) Red Blood Count 4.48 x10^6/uL (4.30-5.70) Hemoglobin 13.8 g/dL (13.0-17.5) Hematocrit 40.5 % (39.0-53.0) Mean Corpuscular Volume 90 fL (79-100) Mean Corpuscular Hemoglobin 31 pg (25-35) Mean Corpuscular Hemoglobin Concent 34 g/dL (31-37) Red Cell Distribution Width 12.8 % (11.5-14.5) Platelet Count 256 x10^3/uL (140-400) Neutrophils (%) (Auto) 88 % (31-73) Lymphocytes (%) (Auto) 8 % (24-48) Monocytes (%) (Auto) 4 % (0-9) Eosinophils (%) (Auto) 0 % (0-3) Basophils (%) (Auto) 0 % (0-3) Neutrophils # (Auto) 14.2 x10^3/uL (1.8-7.7) Lymphocytes # (Auto) 1.2 x10^3/uL (1.0-4.8) Monocytes # (Auto) 0.6 x10^3/uL (0.0-1.1) Eosinophils # (Auto) 0.0 x10^3/uL (0.0-0.7) Basophils # (Auto) 0.0 x10^3/uL (0.0-0.2) Segmented Neutrophils % 89 % (35-66) Lymphocytes % 7 % (24-48) Monocytes % 4 % (0-10) Toxic Granulation Slight Platelet Estimate Adequate (ADEQUATE) Sodium Level 133 mmol/L (136-145) Potassium Level 3.6 mmol/L (3.5-5.1) Chloride Level 95 mmol/L (98-107) Carbon Dioxide Level 27 mmol/L (21-32) Anion Gap 11 (6-14) Blood Urea Nitrogen 32 mg/dL (8-26) Creatinine 1.5 mg/dL (0.7-1.3) Estimated GFR (Cockcroft-Gault) 45.9 BUN/Creatinine Ratio 21 (6-20) Glucose Level 157 mg/dL (70-99) Lactic Acid Level 1.8 mmol/L (0.4-2.0) Calcium Level 10.3 mg/dL (8.5-10.1) Total Bilirubin 0.6 mg/dL (0.2-1.0) Aspartate Amino Transf (AST/SGOT) 22 U/L (15-37) Alanine Aminotransferase (ALT/SGPT) 44 U/L (16-63) Alkaline Phosphatase 72 U/L (46-116) Troponin I High Sensitivity 6 ng/L (4-75) Total Protein 7.7 g/dL (6.4-8.2) Albumin 3.7 g/dL (3.4-5.0) Albumin/Globulin Ratio 0.9 (1.0-1.7) Lipase 377 U/L (73-393) Influenza Type A Antigen Negative (NEGATIVE) Influenza Type B Antigen Negative (NEGATIVE) SARS-CoV-2 RNA (LUI) Negative (Negative) SARS-CoV-2 Antigen (Rapid) Negative (NEGATIVE) Prothrombin Time 13.3 SEC (11.7-14.0) Prothromb Time International Ratio 1.0 (0.8-1.1) Activated Partial Thromboplast Time 31 SEC (24-38) Urine Collection Type Void Urine Color Yellow Urine Clarity Clear Urine pH 5.5 (<5.0-8.0) Urine Specific Sells >=1.030 (1.000-1.030) Urine Protein Negative mg/dL (NEG-TRACE) Urine Glucose (UA) Negative mg/dL (NEG) Urine Ketones (Stick) Trace mg/dL (NEG) Urine Blood Negative (NEG) Urine Nitrite Negative (NEG) Urine Bilirubin Negative (NEG) Urine Urobilinogen Dipstick 0.2 mg/dL (0.2 mg/dL) Urine Leukocyte Esterase Negative (NEG) Urine RBC 0 /HPF (0-2) Urine WBC 0 /HPF (0-4) Urine Squamous Epithelial Cells Occ /LPF Urine Bacteria 0 /HPF (0-FEW) Urine Mucus Slight /LPF Test 11/17/21 08:49 11/17/21 12:05 Glucose (Fingerstick) 158 mg/dL (70-99) 144 mg/dL (70-99) Images Images Chest radiograph: A frontal view of the chest is obtained. There are changes of coronary artery bypass grafting. 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 There is mild atelectasis in the left base. There is no pneumothorax or pleural effusion. The heart is not enlarged. IMPRESSION: 1. 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 Correlate for such history. 2. Mild left basilar atelectasis or infiltrate CT abdomen/pelvis with IV contrast: Lung windows through the visualized portions of the bases reveal mild atelectasis. There is mild wall thickening of the distal esophagus. Bone windows reveal no suspicious lesions. Hypoattenuation of the hepatic parenchyma indicates at least moderate diffuse hepatic steatosis. A gallstone is noted. The pancreas, adrenal glands, spleen and kidneys are unremarkable. Infrarenal abdominal aortic stenosis is at least mild with minimum luminal diameter 1.0 cm. There appears to be relatively severe stenosis of the right external iliac artery. The prostate is moderately enlarged at 5.5 x 4.6 cm. There are no pathologically enlarged lymph nodes. There is no small bowel obstruction. There is no evidence of appendicitis. IMPRESSION: 1. Diffuse hepatic steatosis. 2. Cholelithiasis. 3. Infrarenal abdominal aortic stenosis. Additional stenosis is suspected in the right external iliac artery. 4. Wall thickening of the distal esophagus. Correlate for esophagitis. CT Head: There is no intracranial hemorrhage. There are chronic lacunar infarcts within the right basal ganglia. There is mild chronic microangiopathic white matter change elsewhere. Prominence of the lateral ventricles and hemispheric sulci indicates moderate atrophy. Mucus retention cysts are noted in the right maxillary sinus. 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 The temporal bones are unremarkable. The calvarium reveals no suspicious lesions. There are atherosclerotic calcifications of the internal carotid and vertebral arteries. IMPRESSION: 1. No acute intracranial findings. 2. Chronic right basal ganglia lacunar infarcts. Moderate atrophy. VTE Prophylaxis Ordered VTE Prophylaxis Devices: No VTE Pharmacological Prophylaxi: Yes Assessment/Plan Assessment/Plan A/P: Acute encephalopathy -multifactorial likely postconcussive in addition to taking diphenhydramine. Will check ABG. Frequent redirection. Will rule out infectious etiology. Negative meningeal signs, afebrile. Given it appears to be delerium it is likely reversible cause. Hypercalcemia - notes he has had this problem historically for years. Is on calcium. Has never seen an equipment sales specialist. Treat with IV normal saline check PTH and phosphorus if it does not correct. Hyponatremia - possibly due to chlorthalidone, will hold this medication given GUY, confusion. Monitor sodium after IVF resuscitation GUY - likely vasomotor nephropathy possibly medication induced. No CKD per family Abdominal pain -possibly due to urinary retention. Would stop solifenacin and diuretic for now. Leukocytosis -no clear infectious source though with urinary retention and recent orbital fracture we will follow up blood cultures and urine culture and initiate Rocephin. Prostatomegaly - would hold solifenacin in favor of BPH medications instead, will start on flomax. straight cath prn HTN - cont BB, hold losartan for GUY DM2 - A1c 6.1 per . 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 Will check TSH Abnormal CXR - Mild left basilar atelectasis or infiltrate. will check procalcitonin Right inferior orbital fracture - from fall on 11/12/2021. has outpatient follow up with oculoplastics. CT head appears stable FEN - ADA cardiac diet PPX - heparin FULL CODE Dispo - inpatient Names Gia Collins, his , as surrogate decision-maker Justifications for Admission Other Justification BARRETT BONILLA MD Nov 17, 2021 12:32
--- NOTE | 2021-11-17 13:22 | NUR ---
SS following for discharge planning. SS reviewed pt chart and discussed with pt RN. Pt is from home with spouse and is currently on room air. COVID19 negative. PT/OT ordered. SS will continue to follow for discharge planning.
[2021-11-17 15:00] VITALS: BP 138/61
[2021-11-17] MEDS ORDERED: DEXTROSE 50% 25 GM / 50ML DISP.SYRIN. IV PRN (15:30)
--- NOTE | 2021-11-17 16:15 | NUR ---
Nurse's note: The patient complains of urgency and difficulty voiding. A bladder scan was performed, noted >550 ml urine. Straight catheterization was done per protocol, obtained 700 cc; notified .
--- NOTE | 2021-11-17 16:15 | PDOC2 ---
NEUROLOGY CONSULT Date of Service DOS: DATE: 11/17/21 TIME: 15:58 Reason for Consult Reason for Consult: Altered mental status Referring Physician Referring Physician: Dr. Rivera PCP: Dr. Easton Source Source: Caregiver (Daughter, ), Chart review, Patient History of Present Illness History of Present Illness The patient is a 71-year-old right-handed male whose called 911 yesterday because the patient was markedly confused. He took a bunch of his medications in the morning, was trying to put 2 pairs of underwear on, putting jeans on the wrong way, and trying to drink water out of a doorknob. He was here in the emergency department after falling on his face, 11/12/2021, he had a right orbital floor fracture. He saw an high school learning support teacher in [place] who stated that the patient did not need any surgery. Patient has been more more forgetful for as long as a few years the daughter says. He has gotten a lot worse in the last 3 weeks with falls and inability to take care of activities of daily living. Symptoms have grown even worse now. He has no history of stroke, seizure, or other head injury. Past Medical History Cardiovascular: CAD, HTN, Hyperlipidemia GI: GERD Renal/: Benign prostatic enlarg. Endocrine: Diabetes, Other (history of hypercalcemia) Past Surgical History Past Surgical History: CABG, Other (Bowel obstruction at 1 years old) Family History Family History: CAD, DM Social History Social History , retired, ex-smoker, no alcohol Current Medications Current Medications Current Medications Ondansetron HCl (Zofran) 4 mg 1X ONCE IVP Last administered on 11/17/21at 01:26; Start 11/17/21 at 01:30; Stop 11/17/21 at 01:31; Status DC Sodium Chloride 1,000 ml @ 1,000 mls/hr 1X ONCE IV Last administered on 11/17/21at 01:25; Start 11/17/21 at 01:30; Stop 11/17/21 at 02:29; Status DC Iohexol (Omnipaque 300 Mg/ml) 60 ml 1X ONCE IV ; Start 11/17/21 at 02:30; Stop 11/17/21 at 02:31; Status DC Info (CONTRAST GIVEN -- Rx MONITORING) 1 each PRN DAILY PRN MC SEE COMMENTS; Start 11/17/21 at 02:00; Stop 11/19/21 at 01:59 Prochlorperazine Edisylate (Compazine) 10 mg 1X ONCE IV Last administered on 11/17/21at 02:18; Start 11/17/21 at 02:30; Stop 11/17/21 at 02:31; Status DC Diphenhydramine HCl (Benadryl) 25 mg 1X ONCE IVP Last administered on 11/17/21at 02:18; Start 11/17/21 at 02:30; Stop 11/17/21 at 02:31; Status DC Sodium Chloride 500 ml @ 500 mls/hr 1X ONCE IV Last administered on 11/17/21at 04:55; Start 11/17/21 at 03:00; Stop 11/17/21 at 03:59; Status DC Ondansetron HCl (Zofran) 4 mg PRN Q8HRS PRN IVP NAUSEA/VOMITING 1ST CHOICE; Start 11/17/21 at 06:30; Stop 11/17/21 at 12:32; Status DC Sodium Chloride 1,000 ml @ 85 mls/hr [id number] IV Last administered on 11/17at 10:11; Start 11/17/21 at 07:00; Stop 11/19/21 at 06:03 Acetaminophen (Tylenol) 650 mg PRN Q4HRS PRN PO FEVER > 100.3'F; Start 11/17/21 at 06:30; Stop 11/17/21 at 12:32; Status DC Ondansetron HCl (Zofran) 4 mg PRN Q4HRS PRN IVP NAUSEA/VOMITING 1ST CHOICE; Start 11/17/21 at 12:30 Acetaminophen (Tylenol) 650 mg PRN Q6HRS PRN PO FEVER > 100.3'F; Start 11/17/21 at 12:30 Olanzapine (ZyPREXA ZYDIS) 5 mg PRN BID PRN PO ANXIETY / AGITATION; Start 11/17/21 at 14:30 Carvedilol (Coreg) 12.5 mg BIDWMEALS PO ; Start 11/17/21 at 17:00 Vitamin D (Vitamin D3) 2,000 unit DAILY PO ; Start 11/18/21 at 09:00 Non-Formulary Medication (Ubidecarenone (Coenzyme Q10)) 1 tab DAILY PO ; Start 11/18/21 at 09:00; Stop 11/17/21 at 15:02; Status DC Insulin Human Lispro (HumaLOG) 0-9 UNITS TIDWMEALS SQ ; Start 11/17/21 at 17:00 Dextrose (Dextrose 50%-Water Syringe) 12.5 gm PRN Q15MIN PRN IV SEE COMMENTS; Start 11/17/21 at 15:30 Tamsulosin HCl (Flomax) 0.4 mg QHS PO ; Start 11/17/21 at 21:00 Ceftriaxone Sodium (Rocephin) 1 gm Q24H IVP ; Start 11/17/21 at 16:00 Active Scripts Active Cephalexin 500 Mg Tablet 1 Tab PO BID 7 Days Reported Vesicare (Solifenacin Succinate) 5 Mg Tablet 1 Tab PO DAILY 30 Days Chlorthalidone (Chlorthalidone) 25 Mg Tablet 25 Mg PO DAILY Zetia (Ezetimibe) 10 Mg Tablet 1 Tab PO DAILY 30 Days Vitamin D3 (Vitamin D) 25 Mcg Tablet 50 Mcg PO DAILY 1,000 UNITS = 25 MCG Losartan Potassium 100 Mg Tablet 100 Mg PO DAILY Carvedilol (Carvedilol) 12.5 Mg Tablet 12.5 Mg PO BIDWMEALS Coenzyme Q10 (Ubidecarenone) 100 Mg Tablet 1 Tab PO DAILY 30 Days Metformin Hcl 500 Mg Tablet 500 Mg PO DAILY Allergies Allergies: Coded Allergies: codeine (Verified Allergy, Intermediate, Rash, 11/12/21) ROS Review of System Negative for fever, chills, weight loss, shortness of breath, chest pain, indigestion, hematochezia, melena. Positive for prostatism. Full 14-point review of systems is negative. Physical Exam Physical Examination General: Well-developed, well-nourished, white male, in no acute distress HEENT: Normocephalic: Small contusion inferior to the right orbit, otherwiseatraumatic.Temporal arteriespulsatile and nontender. Neck: Supple without bruit, no meningismus Musculoskeletal: Stability:see neurologic. Gait exam:see neurologic. Tone:see neurologic.Strength:see neurologic. Neurological: Mental Status:orientation, memory, attention span/concentration, language, fund of knowledge: Does not know name of hospital, 9 days off on the date, does not know the year, names and repeats well, speech fluent, follows commands. Cranial Nerves:Pupils equal and reactive to light, extraocular movements areintact, visual germain are full to confrontation. Facial sensation is normal. There is no facial asymmetry. Vestibulo-ocular reflex is intact. Palate elevates and tongue protrudes in midline. All other cranial related problems are negative except as mentioned before.Reflexes:1+ and symmetric with flexor plantar responses. Bilateral grasp reflexes. Motor:5/5 strength with normal tone and bulk. Coordination:Finger-nose finger and [id number] testing are normal. Rapid alternating movements and fine finger movements are intact. Gait:Not tested. Sensory:Stocking loss. Vitals VITALS Vital Signs Date Time Temp Pulse Resp B/P (MAP) Pulse Ox O2 Delivery O2 Flow Rate FiO2 11/17/21 15:00 97.7 77 18 138/61 (86) 94 Room Air 97.7 Labs Labs Laboratory Tests Test 11/17/21 01:22 11/17/21 01:45 11/17/21 02:14 11/17/21 04:15 White Blood Count 16.2 x10^3/uL (4.0-11.0) Red Blood Count 4.48 x10^6/uL (4.30-5.70) Hemoglobin 13.8 g/dL (13.0-17.5) Hematocrit 40.5 % (39.0-53.0) Mean Corpuscular Volume 90 fL (79-100) Mean Corpuscular Hemoglobin 31 pg (25-35) Mean Corpuscular Hemoglobin Concent 34 g/dL (31-37) Red Cell Distribution Width 12.8 % (11.5-14.5) Platelet Count 256 x10^3/uL (140-400) Neutrophils (%) (Auto) 88 % (31-73) Lymphocytes (%) (Auto) 8 % (24-48) Monocytes (%) (Auto) 4 % (0-9) Eosinophils (%) (Auto) 0 % (0-3) Basophils (%) (Auto) 0 % (0-3) Neutrophils # (Auto) 14.2 x10^3/uL (1.8-7.7) Lymphocytes # (Auto) 1.2 x10^3/uL (1.0-4.8) Monocytes # (Auto) 0.6 x10^3/uL (0.0-1.1) Eosinophils # (Auto) 0.0 x10^3/uL (0.0-0.7) Basophils # (Auto) 0.0 x10^3/uL (0.0-0.2) Segmented Neutrophils % 89 % (35-66) Lymphocytes % 7 % (24-48) Monocytes % 4 % (0-10) Toxic Granulation Slight Platelet Estimate Adequate (ADEQUATE) Sodium Level 133 mmol/L (136-145) Potassium Level 3.6 mmol/L (3.5-5.1) Chloride Level 95 mmol/L (98-107) Carbon Dioxide Level 27 mmol/L (21-32) Anion Gap 11 (6-14) Blood Urea Nitrogen 32 mg/dL (8-26) Creatinine 1.5 mg/dL (0.7-1.3) Estimated GFR (Cockcroft-Gault) 45.9 BUN/Creatinine Ratio 21 (6-20) Glucose Level 157 mg/dL (70-99) Lactic Acid Level 1.8 mmol/L (0.4-2.0) Calcium Level 10.3 mg/dL (8.5-10.1) Total Bilirubin 0.6 mg/dL (0.2-1.0) Aspartate Amino Transf (AST/SGOT) 22 U/L (15-37) Alanine Aminotransferase (ALT/SGPT) 44 U/L (16-63) Alkaline Phosphatase 72 U/L (46-116) Troponin I High Sensitivity 6 ng/L (4-75) Total Protein 7.7 g/dL (6.4-8.2) Albumin 3.7 g/dL (3.4-5.0) Albumin/Globulin Ratio 0.9 (1.0-1.7) Lipase 377 U/L (73-393) Thyroid Stimulating Hormone (TSH) 1.587 uIU/mL (0.358-3.74) Influenza Type A Antigen Negative (NEGATIVE) Influenza Type B Antigen Negative (NEGATIVE) SARS-CoV-2 RNA (LUI) Negative (Negative) SARS-CoV-2 Antigen (Rapid) Negative (NEGATIVE) Prothrombin Time 13.3 SEC (11.7-14.0) Prothromb Time International Ratio 1.0 (0.8-1.1) Activated Partial Thromboplast Time 31 SEC (24-38) Urine Collection Type Void Urine Color Yellow Urine Clarity Clear Urine pH 5.5 (<5.0-8.0) Urine Specific Newell >=1.030 (1.000-1.030) Urine Protein Negative mg/dL (NEG-TRACE) Urine Glucose (UA) Negative mg/dL (NEG) Urine Ketones (Stick) Trace mg/dL (NEG) Urine Blood Negative (NEG) Urine Nitrite Negative (NEG) Urine Bilirubin Negative (NEG) Urine Urobilinogen Dipstick 0.2 mg/dL (0.2 mg/dL) Urine Leukocyte Esterase Negative (NEG) Urine RBC 0 /HPF (0-2) Urine WBC 0 /HPF (0-4) Urine Squamous Epithelial Cells Occ /LPF Urine Bacteria 0 /HPF (0-FEW) Urine Mucus Slight /LPF Test 11/17/21 08:49 11/17/21 12:05 Glucose (Fingerstick) 158 mg/dL (70-99) 144 mg/dL (70-99) Laboratory Tests Test 11/17/21 01:22 11/17/21 01:45 11/17/21 02:14 11/17/21 04:15 White Blood Count 16.2 x10^3/uL (4.0-11.0) Red Blood Count 4.48 x10^6/uL (4.30-5.70) Hemoglobin 13.8 g/dL (13.0-17.5) Hematocrit 40.5 % (39.0-53.0) Mean Corpuscular Volume 90 fL (79-100) Mean Corpuscular Hemoglobin 31 pg (25-35) Mean Corpuscular Hemoglobin Concent 34 g/dL (31-37) Red Cell Distribution Width 12.8 % (11.5-14.5) Platelet Count 256 x10^3/uL (140-400) Neutrophils (%) (Auto) 88 % (31-73) Lymphocytes (%) (Auto) 8 % (24-48) Monocytes (%) (Auto) 4 % (0-9) Eosinophils (%) (Auto) 0 % (0-3) Basophils (%) (Auto) 0 % (0-3) Neutrophils # (Auto) 14.2 x10^3/uL (1.8-7.7) Lymphocytes # (Auto) 1.2 x10^3/uL (1.0-4.8) Monocytes # (Auto) 0.6 x10^3/uL (0.0-1.1) Eosinophils # (Auto) 0.0 x10^3/uL (0.0-0.7) Basophils # (Auto) 0.0 x10^3/uL (0.0-0.2) Segmented Neutrophils % 89 % (35-66) Lymphocytes % 7 % (24-48) Monocytes % 4 % (0-10) Toxic Granulation Slight Platelet Estimate Adequate (ADEQUATE) Sodium Level 133 mmol/L (136-145) Potassium Level 3.6 mmol/L (3.5-5.1) Chloride Level 95 mmol/L (98-107) Carbon Dioxide Level 27 mmol/L (21-32) Anion Gap 11 (6-14) Blood Urea Nitrogen 32 mg/dL (8-26) Creatinine 1.5 mg/dL (0.7-1.3) Estimated GFR (Cockcroft-Gault) 45.9 BUN/Creatinine Ratio 21 (6-20) Glucose Level 157 mg/dL (70-99) Lactic Acid Level 1.8 mmol/L (0.4-2.0) Calcium Level 10.3 mg/dL (8.5-10.1) Total Bilirubin 0.6 mg/dL (0.2-1.0) Aspartate Amino Transf (AST/SGOT) 22 U/L (15-37) Alanine Aminotransferase (ALT/SGPT) 44 U/L (16-63) Alkaline Phosphatase 72 U/L (46-116) Troponin I High Sensitivity 6 ng/L (4-75) Total Protein 7.7 g/dL (6.4-8.2) Albumin 3.7 g/dL (3.4-5.0) Albumin/Globulin Ratio 0.9 (1.0-1.7) Lipase 377 U/L (73-393) Thyroid Stimulating Hormone (TSH) 1.587 uIU/mL (0.358-3.74) Influenza Type A Antigen Negative (NEGATIVE) Influenza Type B Antigen Negative (NEGATIVE) SARS-CoV-2 RNA (LUI) Negative (Negative) SARS-CoV-2 Antigen (Rapid) Negative (NEGATIVE) Prothrombin Time 13.3 SEC (11.7-14.0) Prothromb Time International Ratio 1.0 (0.8-1.1) Activated Partial Thromboplast Time 31 SEC (24-38) Urine Collection Type Void Urine Color Yellow Urine Clarity Clear Urine pH 5.5 (<5.0-8.0) Urine Specific Newell >=1.030 (1.000-1.030) Urine Protein Negative mg/dL (NEG-TRACE) Urine Glucose (UA) Negative mg/dL (NEG) Urine Ketones (Stick) Trace mg/dL (NEG) Urine Blood Negative (NEG) Urine Nitrite Negative (NEG) Urine Bilirubin Negative (NEG) Urine Urobilinogen Dipstick 0.2 mg/dL (0.2 mg/dL) Urine Leukocyte Esterase Negative (NEG) Urine RBC 0 /HPF (0-2) Urine WBC 0 /HPF (0-4) Urine Squamous Epithelial Cells Occ /LPF Urine Bacteria 0 /HPF (0-FEW) Urine Mucus Slight /LPF Test 11/17/21 08:49 11/17/21 12:05 Glucose (Fingerstick) 158 mg/dL (70-99) 144 mg/dL (70-99) Images Images CT HEAD WITHOUT CONTRAST, 11/16. HISTORY: Altered mental status, weakness. TECHNIQUE: Computed tomography of the head was performed without intravenous contrast. One or more of the following individualized dose reduction techniques were utilized for this examination: 1. Automated exposure control. 2. Adjustment of the mA and/or kV according to patient size. 3. Use of iterative reconstruction technique. COMPARISON: 11/12/2021. FINDINGS: There is no intracranial hemorrhage. There are chronic lacunar infarcts within the right basal ganglia. There is mild chronic microangiopathic white matter change elsewhere. Prominence of the lateral ventricles and hemispheric sulci indicates moderate atrophy. Mucus retention cysts are noted in the right maxillary sinus. 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 The temporal bones are unremarkable. The calvarium reveals no suspicious lesions. There are atherosclerotic calcifications of the internal carotid and vertebral arteries. IMPRESSION: 1. No acute intracranial findings. 2. Chronic right basal ganglia lacunar infarcts. Moderate atrophy. CT HEAD AND C-SPINE WO, CT ORBITS/SELLA WITHOUT CONTRAST, 11/12/21 Clinical Indication: Reason: fall / Spl. Instructions: / History: Comparison: None. Procedure: Axial images are obtained of the head from the skull base through the vertex without IV contrast. Noncontrast helical CT of the cervical spine was performed. Axial, sagittal, and coronal reconstructions were obtained. Helical CT imaging of the facial bones is performed without IV contrast. Findings: The ventricles and sulci are prominent, consistent with age-related cerebral atrophy. There is periventricular white matter hypoattenuation. This is a nonspecific finding but is commonly due to chronic small vessel ischemic disease in a patient of this age. There is a small old infarct of the left frontal lobe. There is prominent perivascular space versus old lacunar infarct in the right basal ganglia. No mass-effect, midline shift, hemorrhage or obvious acute infarction is identified. Basilar cisterns are patent. Bone windows demonstrate no significant calvarial abnormality. The globes are intact. There is subcutaneous air of the right cheek and the preseptal right orbit. There is acute hemorrhage in the right maxillary sinus. There is mild right orbit post septal air. There is acute traumatic fracture of the right orbital floor measuring approximately 9 mm AP and 6 mm transverse. The fracture is depressed approximately 3 mm. The pterygoid plates and zygomatic arches are intact. There is mucosal thickening of the left maxillary and bilateral ethmoid sinuses. Mastoid air cells are well aerated. There is no evidence of acute fracture or acute malalignment of the cervical spine. There are no perched or jumped facet joints. The facet joints are mildly hypertrophic. The vertebral body height and alignment are maintained. Mild degenerative endplate spurring. The disc spaces are without significant narrowing. Small ossification along the nuchal ligament. There is thyroid goiter mainly on the right with deviation of the trachea to the left. The thyroid is incompletely imaged. The visualized lung apices are clear. IMPRESSION: 1. No acute intracranial abnormality. 2. No acute fracture of the cervical spine. 3. There is acute traumatic fracture of the right orbital floor. The globes are intact. There is mild post septal and severe preseptal right orbit subcutaneous air. 4. Right thyroid goiter, incompletely imaged. Assessment/Plan Assessment/Plan Impression: Increasing dementia, actually time course is over a few years not just recently. The grasp reflexes are evidence of a chronic dementia. Recent fall with orbital fracture Old right basal ganglia lacunar infarcts, which are not a cause of the current clinical situation Peripheral neuropathy, probably diabetic Multifactorial gait disorder Note hyponatremia, renal insufficiency, hyperglycemia, hypercalcemia, normal TSH, but has a goiter Recommendations: Laboratory studies for reversible causes of dementia and neuropathy Physical therapy I do not see a need for a stroke work-up, specifically no need for MRI, or arterial imaging, but reasonable to check lipids and start a daily low-dose aspirin Most likely needs placement Reevaluate as outpatient for dementia, consider trial of donepezil at that time Fully discussed with patient's and daughter Also discussed with Dr. Rivera Thank you for letting me help with the patient's care. NATALIA ARNDT MD Nov 17, 2021 16:15
[2021-11-17 16:46] LABS: BASE EXCESS ABG -2 mmol/L (-3-3); HCO3 ABG 20 mmol/L (21-28); PCO2 ABG 27 mmHg (35-46); PO2 ABG 74 mmHg (65-108); SAT O2 ABG 95 % (92-99)
[2021-11-17 16:49] LABS: FIO2 ABG 21/RA
[2021-11-17] MEDS: cefTRIAXone IV Push 1 GM VIAL. IVP SCH (16:54)
[2021-11-17] MEDS: ASPIRIN ENTERIC COATED 81 MG TABLET.DR. PO SCH (16:54)
[2021-11-17] MEDS: CARVEDILOL 12.5 MG TABLET. PO SCH (16:54)
[2021-11-17] MEDS: INSULIN LISPRO 300 UNITS/3 ML VIAL. SQ SCH (16:59)
[2021-11-17 19:00] VITALS: BP 122/55
[2021-11-17] MEDS: TAMSULOSIN 0.4 MG CAP.ER.24H. PO SCH (20:28)
[2021-11-17 23:03] VITALS: BP 130/60
[2021-11-18] MEDS: IV NORMAL SALINE 1000ML BAG 1,000 ML IV SCH ×3 (01:04→20:48)
[2021-11-18 03:04] VITALS: BP 120/56
--- NOTE | 2021-11-18 03:32 | NUR ---
Bladder scanned patient at the start of shift after voiding 50cc of urine. Got 412 cc vol/ bladder scanner. Dr Rivera was informed. Basurto was placed. 400cc urine out. Patient is confused, attempts to get up, pulled out his IV. Reoriented and redirected as needed. Transferred to [id number] which is closer to the nurses station. Patient pulled out his IV a couple more times in spite of reorienting, redirecting and applying more tape. Informed patient that mitts will be placed to keep him from pulling his IV. Patient wanting to get up to get his mails. Patient claimed he's not in the hospital. Informed patient that its only 3 am and he's @ [facility]. Encouraged patient to stay in bed and get some rest and that his will be here this morning. Patient restless, trying to get out of bed. Will monitor.
[2021-11-18] MEDS: ZIPRASIDONE IM 20 MG VIAL. IM ONE ×2 (04:30→04:42)
--- NOTE | 2021-11-18 05:03 | NUR ---
Patient refused Geodon. informed of patient's behavior and that Geodon was ordered. Gia was hesitant to have the medicine given because she's not familiar with it. She said that benadryl was given to the patient and it made it worse. was asking if she can come in earlier instead to help him calm down. Ana, nursing corncob pipe supervisor was notified of the situation and cleared her to come in earlier to the hospital. Security notified.
[2021-11-18 07:00] VITALS: BP 135/65
[2021-11-18 07:44] LABS: BASO % 0 % (0-3); EOS % 0 % (0-3); HEMATOCRIT 40.3 % (39.0-53.0); HEMOGLOBIN 13.5 g/dL (13.0-17.5); LYMPH # 1.4 x10^3/uL (1.0-4.8); LYMPH % 10 % (24-48); MEAN CORPUSCULAR HEMOGLOBIN 31 pg (25-35); MEAN CORPUSCULAR HGB CONC 34 g/dL (31-37); MEAN CORPUSCULAR VOLUME 92 fL (79-100); MONO # 0.9 x10^3/uL (0.0-1.1); MONO % 6 % (0-9); NEUT % 83 % (31-73); PLATELET COUNT 220 x10^3/uL (140-400); RED CELL DISTRIBUTION WIDTH 12.5 % (11.5-14.5); WHITE BLOOD COUNT 14.4 x10^3/uL (4.0-11.0)
[2021-11-18] MEDS: INSULIN LISPRO 300 UNITS/3 ML VIAL. SQ SCH ×3 (08:00→17:00)
[2021-11-18 08:26] LABS: ALBUMIN 3.5 g/dL (3.4-5.0); CALCIUM 9.5 mg/dL (8.5-10.1); DIRECT BILIRUBIN 0.2 mg/dL (0.0-0.2); GFR 73.2; POTASSIUM 3.4 mmol/L (3.5-5.1); TOTAL BILIRUBIN 0.7 mg/dL (0.2-1.0); TOTAL PROTEIN 6.8 g/dL (6.4-8.2)
--- NOTE | 2021-11-18 08:43 | NUR ---
Pt had pulled out 3 IV's last night.
[2021-11-18] MEDS ORDERED: POTASSIUM CHLORIDE 20 MEQ TABLET.ER. PO ONE (09:00)
[2021-11-18] MEDS ORDERED: UBIDECARENONE PO SCH (09:00)
--- NOTE | 2021-11-18 09:11 | PDOC ---
[employer] PROGRESS NOTE Date of Service DOS: DATE: 11/18/21 TIME: 08:53 Chief Complaint Chief Complaint Acute encephalopathy -multifactorial likely postconcussive in addition to taking diphenhydramine. Will check ABG. Frequent redirection. Will rule out infectious etiology. Negative meningeal signs, afebrile. Given it appears to be delerium it is likely reversible cause. Hypercalcemia - notes he has had this problem historically for years. Is on calcium. 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 Treat with IV normal saline check PTH and phosphorus if it does not correct. Hyponatremia - possibly due to chlorthalidone, will hold this medication given GUY, confusion. Monitor sodium after IVF resuscitation GUY - likely vasomotor nephropathy possibly medication induced. No CKD per family Abdominal pain -possibly due to urinary retention. Would stop solifenacin and diuretic for now. Leukocytosis -no clear infectious source though with urinary retention and recent orbital fracture we will follow up blood cultures and urine culture and initiate Rocephin. Prostatomegaly - would hold solifenacin in favor of BPH medications instead, will start on flomax. straight cath prn HTN - cont BB, hold losartan for GUY DM2 - A1c 6.1 per . 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 Will check TSH Abnormal CXR - Mild left basilar atelectasis or infiltrate. will check procalcitonin Right inferior orbital fracture - from fall on 11/12/2021. has outpatient follow up with oculoplastics. CT head appears stable FEN - ADA cardiac diet PPX - heparin FULL CODE Dispo - inpatient Names Gia Collins, his , as surrogate decision-maker History of Present Illness History of Present Illness Mr Collins "Nabila" is a 71yo male with PMHx HTN, DM2, HLD, CAD s/p CABG who presents to ED with worsening weakness and confusion at home. He has been progressively more confused since his fall and awakened on 11/16/2021 more confused and his went to the grocery store came back in all of his medications for the week were missing in he said he thinks he threw them on the table and took all of them. He was seen in the ED for fall 3 onto his face at home on 11/12/2021 and had a right orbital floor fracture for which he has followed up with oculoplastics at [place] per ED. he has been forgetful having difficulty getting dressed and slow to respond. His only complaint ED was abdominal pain. notes he has a strong cardiac family history and had a CABG in 2009 [facility] and had his brother age 45 of cardiac disease. They moved from [place] in 2019 and she has noted his health has been declining since then. He has had increased frequency of falls. She notes is recently as 2017 he had had this problem and is previously been worked up for a CVA she thinks he had an MRI at [facility] previously and was told it was negative for CVA but the family is concerned that he probably did have a stroke sometime in the last several years. Labs WBC 16.2, Hb 13.8, platelets 256, INR 1, rapid influenza and rapid COVID-19 negative COVID-19 PCR negative, NA 133, K3.6, BUN 32, CR 1.5, glucose 157, lactate 1.8, calcium 10.3, albumin 3.7, lipase 377, LFTs within normal la boratory limits, high-sensitivity troponin is 6, urinalysis bland. EKG sinus rhythm rate of 85 bpm with leftward axis no ST segment elevations or depressions no TWI. CT head with no acute abnormality possibly less emphysematous changes and right inferior orbit and chronic. Right basal ganglia infarct. Chest radiograph with paratracheal mass left tracheal displacement CT abdomen pelvis with external iliac artery stenosis hepatic steatosis. Prostatomegaly. Post void residual high with straight catheter had 770 cc urine out. Admitted for further care 11/18: Lab unrevealing for etiology of confusion. Afebrile. More delirious overnight did not sleep pulled out 3 IVs. Basurto catheter placed for recurrent high residual after voiding. does note he has had "short-term memory problems" for several years but has not excellent long-term memory. I discussed the possibility of his concussion along with taking Vesicare may be uncovering an underlying dementia. She is amenable to looking into skilled rehab options. Awaiting B12 and PTH levels Vitals/I&O Vitals/I&O: Vital Signs Date Time Temp Pulse Resp B/P (MAP) Pulse Ox O2 Delivery O2 Flow Rate FiO2 11/18/21 07:00 98.4 71 20 135/65 (88) 93 Room Air 98.4 I & O 11/17/21 11/17/21 11/18/21 15:00 23:00 07:00 Output Total 700 ml 50 ml 1700 ml Balance -700 ml -50 ml -1700 ml Physical Exam General: Cooperative, No acute distress Abdomen: Normal bowel sounds, Soft, No tenderness, No hepatosplenomegaly, No masses Extremities: No clubbing, No cyanosis, No edema, Normal pulses, No tenderness/swelling Skin: No rashes, No breakdown, No significant lesion Labs Labs: Laboratory Tests Test 11/17/21 12:05 11/17/21 15:01 11/17/21 16:30 11/17/21 20:42 Glucose (Fingerstick) 144 mg/dL (70-99) 140 mg/dL (70-99) 127 mg/dL (70-99) O2 Saturation 95 % (92-99) Arterial Blood pH 7.48 (7.35-7.45) Arterial Blood pCO2 at Patient Temp 27 mmHg (35-46) Arterial Blood pO2 at Patient Temp 74 mmHg (65-108) Arterial Blood HCO3 20 mmol/L (21-28) Arterial Blood Base Excess -2 mmol/L (-3-3) FiO2 21/ra Test 11/18/21 07:00 11/18/21 07:21 White Blood Count 14.4 x10^3/uL (4.0-11.0) Red Blood Count 4.40 x10^6/uL (4.30-5.70) Hemoglobin 13.5 g/dL (13.0-17.5) Hematocrit 40.3 % (39.0-53.0) Mean Corpuscular Volume 92 fL (79-100) Mean Corpuscular Hemoglobin 31 pg (25-35) Mean Corpuscular Hemoglobin Concent 34 g/dL (31-37) Red Cell Distribution Width 12.5 % (11.5-14.5) Platelet Count 220 x10^3/uL (140-400) Neutrophils (%) (Auto) 83 % (31-73) Lymphocytes (%) (Auto) 10 % (24-48) Monocytes (%) (Auto) 6 % (0-9) Eosinophils (%) (Auto) 0 % (0-3) Basophils (%) (Auto) 0 % (0-3) Neutrophils # (Auto) 12.0 x10^3/uL (1.8-7.7) Lymphocytes # (Auto) 1.4 x10^3/uL (1.0-4.8) Monocytes # (Auto) 0.9 x10^3/uL (0.0-1.1) Eosinophils # (Auto) 0.0 x10^3/uL (0.0-0.7) Basophils # (Auto) 0.0 x10^3/uL (0.0-0.2) Sodium Level 139 mmol/L (136-145) Potassium Level 3.4 mmol/L (3.5-5.1) Chloride Level 100 mmol/L (98-107) Carbon Dioxide Level 26 mmol/L (21-32) Anion Gap 13 (6-14) Blood Urea Nitrogen 22 mg/dL (8-26) Creatinine 1.0 mg/dL (0.7-1.3) Estimated GFR (Cockcroft-Gault) 73.2 Glucose Level 119 mg/dL (70-99) Calcium Level 9.5 mg/dL (8.5-10.1) Total Bilirubin 0.7 mg/dL (0.2-1.0) Direct Bilirubin 0.2 mg/dL (0.0-0.2) Aspartate Amino Transf (AST/SGOT) 25 U/L (15-37) Alanine Aminotransferase (ALT/SGPT) 37 U/L (16-63) Alkaline Phosphatase 69 U/L (46-116) Total Protein 6.8 g/dL (6.4-8.2) Albumin 3.5 g/dL (3.4-5.0) Triglycerides Level 106 mg/dL (0-150) Cholesterol Level 166 mg/dL (0-200) LDL Cholesterol, Calculated 112 mg/dL (0-100) VLDL Cholesterol, Calculated 21 mg/dL (0-40) Non-HDL Cholesterol Calculated 133 mg/dL (0-129) HDL Cholesterol 33 mg/dL (40-60) Cholesterol/HDL Ratio 5.0 Glucose (Fingerstick) 133 mg/dL (70-99) Assessment and Plan Assessmemt and Plan Problems Medical Problems: (1) Acute encephalopathy Status: Acute (2) Acute renal insufficiency Status: Acute (3) Chest mass Status: Acute (4) Right orbital fracture Status: Acute Comment Review of Relevant I have reviewed the following items nabila (where applicable) has been applied. Medications: Current Medications Medications (Trade) Dose Ordered Sig/Lynn Route PRN Reason Start Time Stop Time Status Last Admin Dose Admin Acetaminophen (Tylenol) 650 mg PRN Q6HRS PRN PO FEVER > 100.3'F 11/17/21 12:30 11/17/21 20:27 Olanzapine (ZyPREXA ZYDIS) 5 mg PRN BID PRN PO ANXIETY / AGITATION 11/17/21 14:30 11/17/21 20:28 Carvedilol (Coreg) 12.5 mg BIDWMEALS PO 11/17/21 17:00 11/17/21 16:54 Tamsulosin HCl (Flomax) 0.4 mg QHS PO 11/17/21 21:00 11/17/21 20:28 Ceftriaxone Sodium (Rocephin) 1 gm Q24H IVP 11/17/21 16:00 11/17/21 16:54 Aspirin (Ecotrin) 81 mg DAILYWBKFT PO 11/17/21 17:00 11/17/21 16:54 Justifications for Admission Other Justification BARRETT BONILLA MD Nov 18, 2021 09:11
--- NOTE | 2021-11-18 10:52 | NUR ---
SW following. Discussed with RN, pt from home with , room air, cardiac diet, Flu and COVID-19 negative. Neurology following. Pt refusing everything today. PT/OT on hold. SW will continue to follow.
[2021-11-18 11:00] VITALS: BP 140/61
--- NOTE | 2021-11-18 11:35 | PDOC ---
PROGRESS NOTES Date of Service DATE: 11/18/21 TIME: 11:31 Assessment Problems Medical Problems: (1) Acute encephalopathy Status: Acute (2) Acute renal insufficiency Status: Acute (3) Chest mass Status: Acute (4) Right orbital fracture Status: Acute Increasing dementia, actually time course is over a few years not just recently. The grasp reflexes are evidence of a chronic dementia. Sundowning last night Recent fall with orbital fracture, concussion Old right basal ganglia lacunar infarcts, which are not a cause of the current clinical situation Peripheral neuropathy, probably diabetic Multifactorial gait disorder Note hyponatremia, renal insufficiency, hyperglycemia, hypercalcemia, normal TSH, but has a goiter Laboratory studies for reversible causes of dementia and neuropathy negative so far Favorable lipid profile Plan Note as-needed Zyprexa started Physical therapy Needs placement Reevaluate as outpatient for dementia, consider trial of donepezil at that time Fully discussed with patient's Subjective Denies pain Objective Vital Signs Date Time Temp Pulse Resp B/P (MAP) Pulse Ox O2 Delivery O2 Flow Rate FiO2 11/18/21 07:00 98.4 71 20 135/65 (88) 93 Room Air 98.4 Intake and Output 11/18/21 07:00 Output Total 2450 ml Balance -2450 ml Output Urine Total 2450 ml PHYSICAL EXAM Alert. Lying in bed, naked except for diaper, picking at Basurto catheter. Can tell me his name PERRL. EOMI. CN: no focal findings. Muscle tone: normal. Muscle strength: 5/5 DTR: 1+ Bilateral grasp reflexes Plantar reflex: Flexor Gait: not examined in bed. Sensory exam: no abnormal findings. No cerebellar signs elicited. Review of Relevant I have reviewed the following items nabila (where applicable) has been applied. Labs Laboratory Tests Test 11/17/21 01:22 11/17/21 01:45 11/17/21 02:14 11/17/21 04:15 White Blood Count 16.2 x10^3/uL (4.0-11.0) Red Blood Count 4.48 x10^6/uL (4.30-5.70) Hemoglobin 13.8 g/dL (13.0-17.5) Hematocrit 40.5 % (39.0-53.0) Mean Corpuscular Volume 90 fL (79-100) Mean Corpuscular Hemoglobin 31 pg (25-35) Mean Corpuscular Hemoglobin Concent 34 g/dL (31-37) Red Cell Distribution Width 12.8 % (11.5-14.5) Platelet Count 256 x10^3/uL (140-400) Neutrophils (%) (Auto) 88 % (31-73) Lymphocytes (%) (Auto) 8 % (24-48) Monocytes (%) (Auto) 4 % (0-9) Eosinophils (%) (Auto) 0 % (0-3) Basophils (%) (Auto) 0 % (0-3) Neutrophils # (Auto) 14.2 x10^3/uL (1.8-7.7) Lymphocytes # (Auto) 1.2 x10^3/uL (1.0-4.8) Monocytes # (Auto) 0.6 x10^3/uL (0.0-1.1) Eosinophils # (Auto) 0.0 x10^3/uL (0.0-0.7) Basophils # (Auto) 0.0 x10^3/uL (0.0-0.2) Segmented Neutrophils % 89 % (35-66) Lymphocytes % 7 % (24-48) Monocytes % 4 % (0-10) Toxic Granulation Slight Platelet Estimate Adequate (ADEQUATE) Sodium Level 133 mmol/L (136-145) Potassium Level 3.6 mmol/L (3.5-5.1) Chloride Level 95 mmol/L (98-107) Carbon Dioxide Level 27 mmol/L (21-32) Anion Gap 11 (6-14) Blood Urea Nitrogen 32 mg/dL (8-26) Creatinine 1.5 mg/dL (0.7-1.3) Estimated GFR (Cockcroft-Gault) 45.9 BUN/Creatinine Ratio 21 (6-20) Glucose Level 157 mg/dL (70-99) Lactic Acid Level 1.8 mmol/L (0.4-2.0) Calcium Level 10.3 mg/dL (8.5-10.1) Total Bilirubin 0.6 mg/dL (0.2-1.0) Aspartate Amino Transf (AST/SGOT) 22 U/L (15-37) Alanine Aminotransferase (ALT/SGPT) 44 U/L (16-63) Alkaline Phosphatase 72 U/L (46-116) Creatine Kinase 51 U/L (39-308) Troponin I High Sensitivity 6 ng/L (4-75) Total Protein 7.7 g/dL (6.4-8.2) Albumin 3.7 g/dL (3.4-5.0) Albumin/Globulin Ratio 0.9 (1.0-1.7) Lipase 377 U/L (73-393) 25-Hydroxy Vitamin D Total 31.5 ng/mL (30-100) Procalcitonin < 0.10 ng/mL (0.00-0.10) Thyroid Stimulating Hormone (TSH) 1.587 uIU/mL (0.358-3.74) Influenza Type A Antigen Negative (NEGATIVE) Influenza Type B Antigen Negative (NEGATIVE) SARS-CoV-2 RNA (LUI) Negative (Negative) SARS-CoV-2 Antigen (Rapid) Negative (NEGATIVE) Prothrombin Time 13.3 SEC (11.7-14.0) Prothromb Time International Ratio 1.0 (0.8-1.1) Activated Partial Thromboplast Time 31 SEC (24-38) Phosphorus Level 3.3 mg/dL (2.6-4.7) Urine Collection Type Void Urine Color Yellow Urine Clarity Clear Urine pH 5.5 (<5.0-8.0) Urine Specific [place] >=1.030 (1.000-1.030) Urine Protein Negative mg/dL (NEG-TRACE) Urine Glucose (UA) Negative mg/dL (NEG) Urine Ketones (Stick) Trace mg/dL (NEG) Urine Blood Negative (NEG) Urine Nitrite Negative (NEG) Urine Bilirubin Negative (NEG) Urine Urobilinogen Dipstick 0.2 mg/dL (0.2 mg/dL) Urine Leukocyte Esterase Negative (NEG) Urine RBC 0 /HPF (0-2) Urine WBC 0 /HPF (0-4) Urine Squamous Epithelial Cells Occ /LPF Urine Bacteria 0 /HPF (0-FEW) Urine Mucus Slight /LPF Test 11/17/21 08:49 11/17/21 12:05 11/17/21 15:01 11/17/21 16:30 Glucose (Fingerstick) 158 mg/dL (70-99) 144 mg/dL (70-99) 140 mg/dL (70-99) O2 Saturation 95 % (92-99) Arterial Blood pH 7.48 (7.35-7.45) Arterial Blood pCO2 at Patient Temp 27 mmHg (35-46) Arterial Blood pO2 at Patient Temp 74 mmHg (65-108) Arterial Blood HCO3 20 mmol/L (21-28) Arterial Blood Base Excess -2 mmol/L (-3-3) FiO2 21/ra Test 11/17/21 20:42 11/18/21 07:00 11/18/21 07:21 Glucose (Fingerstick) 127 mg/dL (70-99) 133 mg/dL (70-99) White Blood Count 14.4 x10^3/uL (4.0-11.0) Red Blood Count 4.40 x10^6/uL (4.30-5.70) Hemoglobin 13.5 g/dL (13.0-17.5) Hematocrit 40.3 % (39.0-53.0) Mean Corpuscular Volume 92 fL (79-100) Mean Corpuscular Hemoglobin 31 pg (25-35) Mean Corpuscular Hemoglobin Concent 34 g/dL (31-37) Red Cell Distribution Width 12.5 % (11.5-14.5) Platelet Count 220 x10^3/uL (140-400) Neutrophils (%) (Auto) 83 % (31-73) Lymphocytes (%) (Auto) 10 % (24-48) Monocytes (%) (Auto) 6 % (0-9) Eosinophils (%) (Auto) 0 % (0-3) Basophils (%) (Auto) 0 % (0-3) Neutrophils # (Auto) 12.0 x10^3/uL (1.8-7.7) Lymphocytes # (Auto) 1.4 x10^3/uL (1.0-4.8) Monocytes # (Auto) 0.9 x10^3/uL (0.0-1.1) Eosinophils # (Auto) 0.0 x10^3/uL (0.0-0.7) Basophils # (Auto) 0.0 x10^3/uL (0.0-0.2) Erythrocyte Sedimentation Rate 22 (0-15) Sodium Level 139 mmol/L (136-145) Potassium Level 3.4 mmol/L (3.5-5.1) Chloride Level 100 mmol/L (98-107) Carbon Dioxide Level 26 mmol/L (21-32) Anion Gap 13 (6-14) Blood Urea Nitrogen 22 mg/dL (8-26) Creatinine 1.0 mg/dL (0.7-1.3) Estimated GFR (Cockcroft-Gault) 73.2 Glucose Level 119 mg/dL (70-99) Calcium Level 9.5 mg/dL (8.5-10.1) Total Bilirubin 0.7 mg/dL (0.2-1.0) Direct Bilirubin 0.2 mg/dL (0.0-0.2) Aspartate Amino Transf (AST/SGOT) 25 U/L (15-37) Alanine Aminotransferase (ALT/SGPT) 37 U/L (16-63) Alkaline Phosphatase 69 U/L (46-116) Total Protein 6.8 g/dL (6.4-8.2) Albumin 3.5 g/dL (3.4-5.0) Triglycerides Level 106 mg/dL (0-150) Cholesterol Level 166 mg/dL (0-200) LDL Cholesterol, Calculated 112 mg/dL (0-100) VLDL Cholesterol, Calculated 21 mg/dL (0-40) Non-HDL Cholesterol Calculated 133 mg/dL (0-129) HDL Cholesterol 33 mg/dL (40-60) Cholesterol/HDL Ratio 5.0 Vitamin B12 Level 320 pg/mL (247-911) Laboratory Tests Test 11/17/21 12:05 11/17/21 15:01 11/17/21 16:30 11/17/21 20:42 Glucose (Fingerstick) 144 mg/dL (70-99) 140 mg/dL (70-99) 127 mg/dL (70-99) O2 Saturation 95 % (92-99) Arterial Blood pH 7.48 (7.35-7.45) Arterial Blood pCO2 at Patient Temp 27 mmHg (35-46) Arterial Blood pO2 at Patient Temp 74 mmHg (65-108) Arterial Blood HCO3 20 mmol/L (21-28) Arterial Blood Base Excess -2 mmol/L (-3-3) FiO2 21/ra Test 11/18/21 07:00 11/18/21 07:21 White Blood Count 14.4 x10^3/uL (4.0-11.0) Red Blood Count 4.40 x10^6/uL (4.30-5.70) Hemoglobin 13.5 g/dL (13.0-17.5) Hematocrit 40.3 % (39.0-53.0) Mean Corpuscular Volume 92 fL (79-100) Mean Corpuscular Hemoglobin 31 pg (25-35) Mean Corpuscular Hemoglobin Concent 34 g/dL (31-37) Red Cell Distribution Width 12.5 % (11.5-14.5) Platelet Count 220 x10^3/uL (140-400) Neutrophils (%) (Auto) 83 % (31-73) Lymphocytes (%) (Auto) 10 % (24-48) Monocytes (%) (Auto) 6 % (0-9) Eosinophils (%) (Auto) 0 % (0-3) Basophils (%) (Auto) 0 % (0-3) Neutrophils # (Auto) 12.0 x10^3/uL (1.8-7.7) Lymphocytes # (Auto) 1.4 x10^3/uL (1.0-4.8) Monocytes # (Auto) 0.9 x10^3/uL (0.0-1.1) Eosinophils # (Auto) 0.0 x10^3/uL (0.0-0.7) Basophils # (Auto) 0.0 x10^3/uL (0.0-0.2) Erythrocyte Sedimentation Rate 22 (0-15) Sodium Level 139 mmol/L (136-145) Potassium Level 3.4 mmol/L (3.5-5.1) Chloride Level 100 mmol/L (98-107) Carbon Dioxide Level 26 mmol/L (21-32) Anion Gap 13 (6-14) Blood Urea Nitrogen 22 mg/dL (8-26) Creatinine 1.0 mg/dL (0.7-1.3) Estimated GFR (Cockcroft-Gault) 73.2 Glucose Level 119 mg/dL (70-99) Calcium Level 9.5 mg/dL (8.5-10.1) Total Bilirubin 0.7 mg/dL (0.2-1.0) Direct Bilirubin 0.2 mg/dL (0.0-0.2) Aspartate Amino Transf (AST/SGOT) 25 U/L (15-37) Alanine Aminotransferase (ALT/SGPT) 37 U/L (16-63) Alkaline Phosphatase 69 U/L (46-116) Total Protein 6.8 g/dL (6.4-8.2) Albumin 3.5 g/dL (3.4-5.0) Triglycerides Level 106 mg/dL (0-150) Cholesterol Level 166 mg/dL (0-200) LDL Cholesterol, Calculated 112 mg/dL (0-100) VLDL Cholesterol, Calculated 21 mg/dL (0-40) Non-HDL Cholesterol Calculated 133 mg/dL (0-129) HDL Cholesterol 33 mg/dL (40-60) Cholesterol/HDL Ratio 5.0 Vitamin B12 Level 320 pg/mL (247-911) Glucose (Fingerstick) 133 mg/dL (70-99) Microbiology 11/17/21 Blood Culture - Preliminary, Resulted NO GROWTH AFTER 1 DAY Medications Current Medications Ondansetron HCl (Zofran) 4 mg 1X ONCE IVP Last administered on 11/17/21at 01:26; Start 11/17/21 at 01:30; Stop 11/17/21 at 01:31; Status DC Sodium Chloride 1,000 ml @ 1,000 mls/hr 1X ONCE IV Last administered on 11/17/21at 01:25; Start 11/17/21 at 01:30; Stop 11/17/21 at 02:29; Status DC Iohexol (Omnipaque 300 Mg/ml) 60 ml 1X ONCE IV ; Start 11/17/21 at 02:30; Stop 11/17/21 at 02:31; Status DC Info (CONTRAST GIVEN -- Rx MONITORING) 1 each PRN DAILY PRN MC SEE COMMENTS; Start 11/17/21 at 02:00; Stop 11/19/21 at 01:59 Prochlorperazine Edisylate (Compazine) 10 mg 1X ONCE IV Last administered on 11/17/21at 02:18; Start 11/17/21 at 02:30; Stop 11/17/21 at 02:31; Status DC Diphenhydramine HCl (Benadryl) 25 mg 1X ONCE IVP Last administered on 11/17/21at 02:18; Start 11/17/21 at 02:30; Stop 11/17/21 at 02:31; Status DC Sodium Chloride 500 ml @ 500 mls/hr 1X ONCE IV Last administered on 11/17at 04:55; Start 11/17/21 at 03:00; Stop 11/17/21 at 03:59; Status DC Ondansetron HCl (Zofran) 4 mg PRN Q8HRS PRN IVP NAUSEA/VOMITING 1ST CHOICE; Start 11/17/21 at 06:30; Stop 11/17/21 at 12:32; Status DC Sodium Chloride 1,000 ml @ 85 mls/hr [id number] IV Last administered on 11/18/21at 01:04; Start 11/17/21 at 07:00; Stop 11/19/21 at 06:03 Acetaminophen (Tylenol) 650 mg PRN Q4HRS PRN PO FEVER > 100.3'F; Start 11/17/21 at 06:30; Stop 11/17/21 at 12:32; Status DC Ondansetron HCl (Zofran) 4 mg PRN Q4HRS PRN IVP NAUSEA/VOMITING 1ST CHOICE; Start 11/17/21 at 12:30 Acetaminophen (Tylenol) 650 mg PRN Q6HRS PRN PO FEVER > 100.3'F Last administered on 11/17/21at 20:27; Start 11/17/21 at 12:30 Olanzapine (ZyPREXA ZYDIS) 5 mg PRN BID PRN PO ANXIETY / AGITATION Last administered on 11/17/21at 20:28; Start 11/17/21 at 14:30 Carvedilol (Coreg) 12.5 mg BIDWMEALS PO Last administered on 11/17/21at 16:54; Start 11/17/21 at 17:00 Vitamin D (Vitamin D3) 2,000 unit DAILY PO ; Start 11/18/21 at 09:00 Non-Formulary Medication (Ubidecarenone (Coenzyme Q10)) 1 tab DAILY PO ; Start 11/18/21 at 09:00; Stop 11/17/21 at 15:02; Status DC Insulin Human Lispro (HumaLOG) 0-9 UNITS TIDWMEALS SQ ; Start 11/17/21 at 17:00 Dextrose (Dextrose 50%-Water Syringe) 12.5 gm PRN Q15MIN PRN IV SEE COMMENTS; Start 11/17/21 at 15:30 Tamsulosin HCl (Flomax) 0.4 mg QHS PO Last administered on 11/17/21at 20:28; Start 11/17/21 at 21:00 Ceftriaxone Sodium (Rocephin) 1 gm Q24H IVP Last administered on 11/17/21at 16:54; Start 11/17/21 at 16:00 Aspirin (Ecotrin) 81 mg DAILYWBKFT PO Last administered on 11/17/21at 16:54; Start 11/17/21 at 17:00 Ziprasidone (Geodon Im) 10 mg 1X ONCE IM ; Start 11/18/21 at 04:30; Stop 11/18/21 at 04:31; Status DC Potassium Chloride (Klor-Con) 40 meq 1X ONCE PO ; Start 11/18/21 at 09:00; Stop 11/18/21 at 09:01; Status DC Active Scripts Active Cephalexin 500 Mg Tablet 1 Tab PO BID 7 Days Reported Vesicare (Solifenacin Succinate) 5 Mg Tablet 1 Tab PO DAILY 30 Days Chlorthalidone (Chlorthalidone) 25 Mg Tablet 25 Mg PO DAILY Zetia (Ezetimibe) 10 Mg Tablet 1 Tab PO DAILY 30 Days Vitamin D3 (Vitamin D) 25 Mcg Tablet 50 Mcg PO DAILY 1,000 UNITS = 25 MCG Losartan Potassium 100 Mg Tablet 100 Mg PO DAILY Carvedilol (Carvedilol) 12.5 Mg Tablet 12.5 Mg PO BIDWMEALS Coenzyme Q10 (Ubidecarenone) 100 Mg Tablet 1 Tab PO DAILY 30 Days Metformin Hcl 500 Mg Tablet 500 Mg PO DAILY Vitals/I & O Vital Sign - Last 24 Hours 11/17/21 11/17/21 11/17/21 11/17/21 15:00 16:54 19:00 20:00 Temp 97.7 98.7 97.7 98.7 Pulse 77 77 67 Resp 18 20 B/P (MAP) 138/61 (86) 138/61 122/55 (77) Pulse Ox 94 94 O2 Delivery Room Air Room Air Room Air 11/17/21 11/18/21 11/18/21 23:03 03:04 07:00 Temp 97.7 98.1 98.4 97.7 98.1 98.4 Pulse 77 81 71 Resp 20 20 20 B/P (MAP) 130/60 (83) 120/56 (77) 135/65 (88) Pulse Ox 94 95 93 O2 Delivery Room Air Room Air Room Air Intake and Output 11/17/21 11/17/2121 15:00 23:00 07:00 Output Total 700 ml 50 ml 1700 ml Balance -700 ml -50 ml -1700 ml Justicifation of Admission Dx: Justifications for Admission: Justification of Admission Dx: N/A NATALIA ARNDT MD Nov 18, 2021 11:35
[2021-11-18] MEDS: ASPIRIN ENTERIC COATED 81 MG TABLET.DR. PO SCH (12:39)
[2021-11-18] MEDS: CHOLECALCIFEROL (VITAMIN D3) 1,000 UNIT TABLET PO SCH (12:39)
[2021-11-18] MEDS: CARVEDILOL 12.5 MG TABLET. PO SCH ×2 (12:40→17:34)
[2021-11-18] MEDS: cefTRIAXone IV Push 1 GM VIAL. IVP SCH (16:00)
[2021-11-18 19:00] VITALS: BP 138/64
[2021-11-18] MEDS: TAMSULOSIN 0.4 MG CAP.ER.24H. PO SCH (20:48)
[2021-11-18] MEDS: LACTOBACILLUS RHAMNOSUS GG 1 CAPSULE. PO SCH (20:48)
[2021-11-18 23:00] VITALS: BP 146/58
[2021-11-19 00:12] LABS: HEMOGLOBIN A1C 6.9 % (4.8-5.6)
[2021-11-19 03:29] VITALS: BP 136/55
[2021-11-19 07:00] VITALS: BP 135/67
[2021-11-19 07:15] LABS: CALCIUM PTH 10.2 mg/dL (8.6-10.2); CREATININE PTH 1.09 mg/dL (0.76-1.27); PHOSPHORUS PTH 1.8 mg/dL (2.8-4.1); PTH INTACT 74 pg/mL (15-65)
[2021-11-19] MEDS: INSULIN LISPRO 300 UNITS/3 ML VIAL. SQ SCH ×3 (08:00→17:00)
[2021-11-19] MEDS: LACTOBACILLUS RHAMNOSUS GG 1 CAPSULE. PO SCH ×2 (09:02→20:56)
[2021-11-19] MEDS: CARVEDILOL 12.5 MG TABLET. PO SCH ×2 (09:03→17:06)
[2021-11-19] MEDS: CHOLECALCIFEROL (VITAMIN D3) 1,000 UNIT TABLET PO SCH (09:03)
[2021-11-19] MEDS: ASPIRIN ENTERIC COATED 81 MG TABLET.DR. PO SCH (09:07)
[2021-11-19 11:00] VITALS: BP 139/61
--- NOTE | 2021-11-19 13:59 | PDOC ---
[employer] PROGRESS NOTE Date of Service DOS: DATE: 11/19/21 TIME: 13:59 Chief Complaint Chief Complaint Acute encephalopathy -multifactorial likely postconcussive in addition to taking diphenhydramine. Will check ABG. Frequent redirection. Will rule out infectious etiology. Negative meningeal signs, afebrile. Given it appears to be delerium it is likely reversible cause. Hypercalcemia - notes he has had this problem historically for years. Is on calcium. Has never seen an assistant counsel. Treat with IV normal saline check PTH and phosphorus if it does not correct. Hyponatremia - possibly due to chlorthalidone, will hold this medication given GUY, confusion. Monitor sodium after IVF resuscitation GUY - likely vasomotor nephropathy possibly medication induced. No CKD per family Abdominal pain -possibly due to urinary retention. Would stop solifenacin and diuretic for now. Leukocytosis -no clear infectious source though with urinary retention and recent orbital fracture we will follow up blood cultures and urine culture and initiate Rocephin. Prostatomegaly - would hold solifenacin in favor of BPH medications instead, will start on flomax. straight cath prn HTN - cont BB, hold losartan for GUY DM2 - A1c 6.1 per . 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 Will check TSH Abnormal CXR - Mild left basilar atelectasis or infiltrate. will check procalcitonin Right inferior orbital fracture - from fall on 11/12/2021. has outpatient follow up with oculoplastics. CT head appears stable FEN - ADA cardiac diet PPX - heparin FULL CODE Dispo - inpatient Names Gia Collins, his , as surrogate decision-maker History of Present Illness History of Present Illness Mr Collins "Nabila" is a 71yo male with PMHx HTN, DM2, HLD, CAD s/p CABG who presents to ED with worsening weakness and confusion at home. He has been progressively more confused since his fall and awakened on 11/16/2021 more confused and his went to the grocery store came back in all of his medications for the week were missing in he said he thinks he threw them on the table and took all of them. He was seen in the ED for fall 3 onto his face at home on 11/12/2021 and had a right orbital floor fracture for which he has followed up with oculoplastics at [place] per ED. he has been forgetful having difficulty getting dressed and slow to respond. His only complaint ED was abdominal pain. notes he has a strong cardiac family history and had a CABG in 2009 [facility] and had his brother age 45 of cardiac disease. They moved from [place] in 2019 and she has noted his health has been declining since then. He has had increased frequency of falls. She notes is recently as 2017 he had had this problem and is previously been worked up for a CVA she thinks he had an MRI at [facility] previously and was told it was negative for CVA but the family is concerned that he probably did have a stroke sometime in the last several years. Labs WBC 16.2, Hb 13.8, platelets 256, INR 1, rapid influenza and rapid COVID-19 negative COVID-19 PCR negative, NA 133, K3.6, BUN 32, CR 1.5, glucose 157, lactate 1.8, calcium 10.3, albumin 3.7, lipase 377, LFTs within normal la boratory limits, high-sensitivity troponin is 6, urinalysis bland. EKG sinus rhythm rate of 85 bpm with leftward axis no ST segment elevations or depressions no TWI. CT head with no acute abnormality possibly less emphysematous changes and right inferior orbit and chronic. Right basal ganglia infarct. Chest radiograph with paratracheal mass left tracheal displacement CT abdomen pelvis with external iliac artery stenosis hepatic steatosis. Prostatomegaly. Post void residual high with straight catheter had 770 cc urine out. Admitted for further care 11/18: Lab unrevealing for etiology of confusion. Afebrile. More delirious overnight did not sleep pulled out 3 IVs. Basurto catheter placed for recurrent high residual after voiding. does note he has had "short-term memory problems" for several years but has not excellent long-term memory. I discussed the possibility of his concussion along with taking Vesicare may be uncovering an underlying dementia. She is amenable to looking into skilled rehab options. Awaiting B12 and PTH levels 12/24, his reports he is much mopre alert today, mental status better, eating Ok,, still too weak to go home, he is aware of some dementia problems and is very calm about it Vitals/I&O Vitals/I&O: Vital Signs Date Time Temp Pulse Resp B/P (MAP) Pulse Ox O2 Delivery O2 Flow Rate FiO2 11/19/21 11:00 98.4 78 20 139/61 (87) 94 Room Air 98.4 I & O 11/18/21 11/18/21 11/19/21 15:00 23:00 07:00 Intake Total 240 ml 120 ml Output Total 1250 ml 1725 ml Balance -1010 ml 120 ml -1725 ml Physical Exam General: Alert, Cooperative, No acute distress, Other (not oriented ) Heart: Regular rate Lungs: Clear Abdomen: Normal bowel sounds, Soft, No tenderness, No hepatosplenomegaly, No masses Extremities: No clubbing, No cyanosis, No edema, Normal pulses, No tenderness/swelling Skin: No rashes, No breakdown, No significant lesion Labs Labs: Laboratory Tests Test 11/18/21 16:56 11/18/21 21:18 11/19/21 07:30 11/19/21 11:29 Glucose (Fingerstick) 129 mg/dL (70-99) 111 mg/dL (70-99) 111 mg/dL (70-99) 138 mg/dL (70-99) Review of Systems Review of Systems: no fver, no chills no cough Assessment and Plan Assessmemt and Plan Problems Medical Problems: (1) Acute encephalopathy Status: Acute (2) Acute renal insufficiency Status: Acute (3) Chest mass Status: Acute (4) Right orbital fracture Status: Acute Comment Review of Relevant I have reviewed the following items nabila (where applicable) has been applied. Medications: Current Medications Medications (Trade) Dose Ordered Sig/Lynn Route PRN Reason Start Time Stop Time Status Last Admin Dose Admin Lactobacillus Rhamnosus (Culturelle) 1 cap BID PO 11/18/21 21:00 11/19/21 09:02 Justifications for Admission Other Justification GLENDA SALDANA MD Nov 19, 2021 13:59
[2021-11-19 15:00] VITALS: BP 143/60
[2021-11-19] MEDS: cefTRIAXone IV Push 1 GM VIAL. IVP SCH (16:57)
[2021-11-19 19:00] VITALS: BP 154/65
[2021-11-19] MEDS: TAMSULOSIN 0.4 MG CAP.ER.24H. PO SCH (20:56)
[2021-11-19 23:00] VITALS: BP 167/70
[2021-11-20 04:17] VITALS: BP 143/57
[2021-11-20 07:00] VITALS: BP 97/49
[2021-11-20] MEDS: INSULIN LISPRO 300 UNITS/3 ML VIAL. SQ SCH ×3 (07:45→17:00)
[2021-11-20] MEDS: CHOLECALCIFEROL (VITAMIN D3) 1,000 UNIT TABLET PO SCH (08:37)
[2021-11-20] MEDS: LACTOBACILLUS RHAMNOSUS GG 1 CAPSULE. PO SCH ×2 (08:37→21:20)
[2021-11-20] MEDS: ASPIRIN ENTERIC COATED 81 MG TABLET.DR. PO SCH (08:37)
[2021-11-20] MEDS: CARVEDILOL 12.5 MG TABLET. PO SCH ×2 (08:38→17:18)
--- NOTE | 2021-11-20 09:18 | PDOC ---
[employer] [facility] PROGRESS NOTE Date of Service DOS: DATE: 11/20/21 TIME: 09:16 Chief Complaint Chief Complaint Acute encephalopathy -multifactorial likely postconcussive in addition to taking diphenhydramine. Will check ABG. Frequent redirection. Will rule out infectious etiology. Negative meningeal signs, afebrile. Given it appears to be delerium it is likely reversible cause. Hypercalcemia - notes he has had this problem historically for years. Is on calcium. Has never seen an chief of internal medicine. Treat with IV normal saline check PTH and phosphorus if it does not correct. Hyponatremia - possibly due to chlorthalidone, will hold this medication given GUY, confusion. Monitor sodium after IVF resuscitation GUY - likely vasomotor nephropathy possibly medication induced. No CKD per family Abdominal pain -possibly due to urinary retention. Would stop solifenacin and diuretic for now. Leukocytosis -no clear infectious source though with urinary retention and recent orbital fracture we will follow up blood cultures and urine culture and initiate Rocephin. Prostatomegaly - would hold solifenacin in favor of BPH medications instead, will start on flomax. straight cath prn HTN - cont BB, hold losartan for GUY DM2 - A1c 6.1 per . 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 Will check TSH Abnormal CXR - Mild left basilar atelectasis or infiltrate. will check procalcitonin Right inferior orbital fracture - from fall on 11/12/2021. has outpatient follow up with oculoplastics. CT head appears stable FEN - ADA cardiac diet PPX - heparin FULL CODE Dispo - inpatient Names Gia Collins, his , as surrogate decision-maker History of Present Illness History of Present Illness Mr Collins "Nabila" is a 71yo male with PMHx HTN, DM2, HLD, CAD s/p CABG who presents to ED with worsening weakness and confusion at home. He has been progressively more confused since his fall and awakened on 11/16/2021 more confused and his went to the grocery store came back in all of his medications for the week were missing in he said he thinks he threw them on the table and took all of them. He was seen in the ED for fall 3 onto his face at home on 11/12/2021 and had a right orbital floor fracture for which he has followed up with oculoplastics at [place] per ED. he has been forgetful having difficulty getting dressed and slow to respond. His only complaint ED was abdominal pain. notes he has a strong cardiac family history and had a CABG in 2009 [facility] and had his brother age 45 of cardiac disease. They moved from [place] in 2019 and she has noted his health has been declining since then. He has had increased frequency of falls. She notes is recently as 2017 he had had this problem and is previously been worked up for a CVA she thinks he had an MRI at [facility] previously and was told it was negative for CVA but the family is concerned that he probably did have a stroke sometime in the last several years. Labs WBC 16.2, Hb 13.8, platelets 256, INR 1, rapid influenza and rapid COVID-19 negative COVID-19 PCR negative, NA 133, K3.6, BUN 32, CR 1.5, glucose 157, lactate 1.8, calcium 10.3, albumin 3.7, lipase 377, LFTs within normal la boratory limits, high-sensitivity troponin is 6, urinalysis bland. EKG sinus rhythm rate of 85 bpm with leftward axis no ST segment elevations or depressions no TWI. CT head with no acute abnormality possibly less emphysematous changes and right inferior orbit and chronic. Right basal ganglia infarct. Chest radiograph with paratracheal mass left tracheal displacement CT abdomen pelvis with external iliac artery stenosis hepatic steatosis. Prostatomegaly. Post void residual high with straight catheter had 770 cc urine out. Admitted for further care 11/18: Lab unrevealing for etiology of confusion. Afebrile. More delirious overnight did not sleep pulled out 3 IVs. Basurto catheter placed for recurrent high residual after voiding. does note he has had "short-term memory problems" for several years but has not excellent long-term memory. I discussed the possibility of his concussion along with taking Vesicare may be uncovering an underlying dementia. She is amenable to looking into skilled rehab options. Awaiting B12 and PTH levels 11/19, his reports he is much mopre alert today, mental status better, eating Ok,, still too weak to go home, he is aware of some dementia problems and is very calm about it 11/20, walked wtll with PT yesterday, but cannot get himself up in bed this AM to eat. trouble with transfers, likley not safe at home cont PT, will disc uss wth , mental status much better again today he cannot recall me well, I spoke to him almost 20 min yesterday Vitals/I&O Vitals/I&O: Vital Signs Date Time Temp Pulse Resp B/P (MAP) Pulse Ox O2 Delivery O2 Flow Rate FiO2 11/20/21 08:38 73 97/49 11/20/21 04:17 98.0 20 95 Room Air 98.0 I & O 0 11/19/21 11/19/21 11/20/21 15:00 23:00 07:00 Intake Total 480 ml 240 ml Output Total 900 ml 700 ml 1025 ml Balance -420 ml -460 ml -1025 ml Physical Exam General: Alert, Cooperative, No acute distress, Other (not oriented ) Heart: Regular rate Lungs: Clear Abdomen: Normal bowel sounds, Soft, No tenderness, No hepatosplenomegaly, No masses Extremities: No clubbing, No cyanosis, No edema, Normal pulses, No tenderness/swelling Skin: No rashes, No breakdown, No significant lesion Labs Labs: Laboratory Tests Test 11/19/21 11:29 11/19/21 16:47 11/19/21 20:21 11/20/21 07:13 Glucose (Fingerstick) 138 mg/dL (70-99) 112 mg/dL (70-99) 133 mg/dL (70-99) 137 mg/dL (70-99) Review of Systems Review of Systems: no n.v.d Assessment and Plan Assessmemt and Plan Problems Medical Problems: (1) Acute encephalopathy Status: Acute (2) Acute renal insufficiency Status: Acute (3) Chest mass Status: Acute (4) Right orbital fracture Status: Acute Comment Review of Relevant I have reviewed the following items nabila (where applicable) has been applied. Justifications for Admission Other Justification GLENDA SALDANA MD Nov 20, 2021 09:18
[2021-11-20 11:00] VITALS: BP 130/62
[2021-11-20 15:00] VITALS: BP 133/62
[2021-11-20] MEDS: cefTRIAXone IV Push 1 GM VIAL. IVP SCH (17:19)
[2021-11-20 19:00] VITALS: BP 150/60
[2021-11-20] MEDS: TAMSULOSIN 0.4 MG CAP.ER.24H. PO SCH (21:20)
[2021-11-20 23:00] VITALS: BP 147/68
[2021-11-21 03:00] VITALS: BP 146/68
[2021-11-21 07:00] VITALS: BP 130/96
[2021-11-21] MEDS: INSULIN LISPRO 300 UNITS/3 ML VIAL. SQ SCH ×3 (08:00→17:00)
[2021-11-21] MEDS: LACTOBACILLUS RHAMNOSUS GG 1 CAPSULE. PO SCH ×3 (09:00→21:19)
[2021-11-21] MEDS: SIMETHICONE 80 MG TAB.CHEW PO PRN (09:07)
[2021-11-21] MEDS: ASPIRIN ENTERIC COATED 81 MG TABLET.DR. PO SCH (09:07)
[2021-11-21] MEDS: CHOLECALCIFEROL (VITAMIN D3) 1,000 UNIT TABLET PO SCH (09:08)
[2021-11-21] MEDS: CARVEDILOL 12.5 MG TABLET. PO SCH ×2 (09:08→17:45)
[2021-11-21 11:00] VITALS: BP 101/71
[2021-11-21] MEDS ORDERED: POLYETHYLENE GLYCOL 3350 17 GM PACKET. PO ONE (12:45)
[2021-11-21] MEDS ORDERED: POLYETHYLENE GLYCOL 3350 17 GM PACKET. PO PRN (12:45)
[2021-11-21] MEDS ORDERED: MAGNESIUM HYDROXIDE 2,400 MG/30 ML ORAL.SUSP. PO PRN (12:45)
[2021-11-21] MEDS: DOCUSATE SODIUM 100 MG CAPSULE. PO SCH (13:10)
--- NOTE | 2021-11-21 14:45 | PDOC ---
[employer] PROGRESS NOTE Date of Service DOS: DATE: 11/21/21 TIME: 14:43 Chief Complaint Chief Complaint Acute encephalopathy -multifactorial likely postconcussive in addition to taking diphenhydramine. Will check ABG. Frequent redirection. Will rule out infectious etiology. Negative meningeal signs, afebrile. Given it appears to be delerium it is likely reversible cause. Hypercalcemia - notes he has had this problem historically for years. Is on calcium. Has never seen an collision center manager. Treat with IV normal saline check PTH and phosphorus if it does not correct. Hyponatremia - possibly due to chlorthalidone, will hold this medication given GUY, confusion. Monitor sodium after IVF resuscitation GUY - likely vasomotor nephropathy possibly medication induced. No CKD per family Abdominal pain -possibly due to urinary retention. Would stop solifenacin and diuretic for now. Leukocytosis -no clear infectious source though with urinary retention and recent orbital fracture we will follow up blood cultures and urine culture and initiate Rocephin. Prostatomegaly - would hold solifenacin in favor of BPH medications instead, will start on flomax. straight cath prn HTN - cont BB, hold losartan for GUY DM2 - A1c 6.1 per . 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 Will check TSH Abnormal CXR - Mild left basilar atelectasis or infiltrate. will check procalcitonin Right inferior orbital fracture - from fall on 11/12/2021. has outpatient follow up with oculoplastics. CT head appears stable FEN - ADA cardiac diet PPX - heparin FULL CODE Dispo - inpatient Names Gia Collins, his , as surrogate decision-maker History of Present Illness History of Present Illness Mr Collins "Nabila" is a 71yo male with PMHx HTN, DM2, HLD, CAD s/p CABG who presents to ED with worsening weakness and confusion at home. He has been progressively more confused since his fall and awakened on 11/16/2021 more confused and his went to the grocery store came back in all of his medications for the week were missing in he said he thinks he threw them on the table and took all of them. He was seen in the ED for fall 3 onto his face at home on 11/12/2021 and had a right orbital floor fracture for which he has followed up with oculoplastics at [place] per ED. he has been forgetful having difficulty getting dressed and slow to respond. His only complaint ED was abdominal pain. notes he has a strong cardiac family history and had a CABG in 2009 [facility] and had his brother age 45 of cardiac disease. They moved from [place] in 2019 and she has noted his health has been declining since then. He has had increased frequency of falls. She notes is recently as 2017 he had had this problem and is previously been worked up for a CVA she thinks he had an MRI at [facility] previously and was told it was negative for CVA but the family is concerned that he probably did have a stroke sometime in the last several years. Labs WBC 16.2, Hb 13.8, platelets 256, INR 1, rapid influenza and rapid COVID-19 negative COVID-19 PCR negative, NA 133, K3.6, BUN 32, CR 1.5, glucose 157, lactate 1.8, calcium 10.3, albumin 3.7, lipase 377, LFTs within normal la boratory limits, high-sensitivity troponin is 6, urinalysis bland. EKG sinus rhythm rate of 85 bpm with leftward axis no ST segment elevations or depressions no TWI. CT head with no acute abnormality possibly less emphysematous changes and right inferior orbit and chronic. Right basal ganglia infarct. Chest radiograph with paratracheal mass left tracheal displacement CT abdomen pelvis with external iliac artery stenosis hepatic steatosis. Prostatomegaly. Post void residual high with straight catheter had 770 cc urine out. Admitted for further care 11/18: Lab unrevealing for etiology of confusion. Afebrile. More delirious overnight did not sleep pulled out 3 IVs. Basurto catheter placed for recurrent high residual after voiding. does note he has had "short-term memory problems" for several years but has not excellent long-term memory. I discussed the possibility of his concussion along with taking Vesicare may be uncovering an underlying dementia. She is amenable to looking into skilled rehab options. Awaiting B12 and PTH levels 11/19, his reports he is much mopre alert today, mental status better, eating Ok,, still too weak to go home, he is aware of some dementia problems and is very calm about it 11/20, walked wtll with PT yesterday, but cannot get himself up in bed this AM to eat. trouble with transfers, tadley not safe at home cont PT, will disc uss wth , mental status much better again today he cannot recall me well, I spoke to him almost 20 min yesterday 11/21, can wakl well, still cannot transfer, needs a lot fo help sitting up in bed, mental status better with meds chagned, plan skilled, his has a bad back and cannot assist well at home, they have limited stairs, shoudl SNU stay is hopefully short Vitals/I&O Vitals/I&O: Vital Signs Date Time Temp Pulse Resp B/P (MAP) Pulse Ox O2 Delivery O2 Flow Rate FiO2 11/21/21 11:00 98.9 77 18 101/71 (81) 94 98.9 11/21/21 08:00 Room Air I & O 11/20/21 11/20/21 11/21/21 15:00 23:00 07:00 Intake Total 480 ml 360 ml 0 ml Output Total 450 ml 1300 ml 500 ml Balance 30 ml -940 ml -500 ml Physical Exam General: Alert, Cooperative, No acute distress, Other (not oriented ) Heart: Regular rate Lungs: Clear Abdomen: Normal bowel sounds, Soft, No tenderness, No hepatosplenomegaly, No masses Extremities: No clubbing, No cyanosis, No edema, Normal pulses, No tenderness/swelling Skin: No rashes, No breakdown, No significant lesion Labs Labs: Laboratory Tests Test 11/20/21 16:17 11/20/21 20:39 11/21/21 07:37 11/21/21 10:47 Glucose (Fingerstick) 147 mg/dL (70-99) 130 mg/dL (70-99) 125 mg/dL (70-99) 149 mg/dL (70-99) Assessment and Plan Assessmemt and Plan Problems Medical Problems: (1) Acute encephalopathy Status: Acute (2) Acute renal insufficiency Status: Acute (3) Chest mass Status: Acute (4) Right orbital fracture Status: Acute Comment Review of Relevant I have reviewed the following items nabila (where applicable) has been applied. Medications: Current Medications Medications (Trade) Dose Ordered Sig/Lynn Route PRN Reason Start Time Stop Time Status Last Admin Dose Admin Docusate Sodium (Colace) 100 mg DAILY PO 11/21/21 12:45 11/21/21 13:10 Polyethylene Glycol (miraLAX PACKET) 17 gm 1X ONCE PO 11/21/21 12:45 11/21/21 12:50 DC 11/21/21 13:10 Justifications for Admission Other Justification GLENDA SALDANA MD Nov 21, 2021 14:45
[2021-11-21 15:00] VITALS: BP 108/63
[2021-11-21] MEDS: cefTRIAXone IV Push 1 GM VIAL. IVP SCH (17:45)
[2021-11-21 19:38] VITALS: BP 160/68
[2021-11-21] MEDS: TAMSULOSIN 0.4 MG CAP.ER.24H. PO SCH ×2 (21:00→21:19)
[2021-11-21 22:43] VITALS: BP 140/70
--- NOTE | 2021-11-22 00:24 | NUR ---
Patient's @ the bedside @ this time. Patient had been trying to get up and threatened to hit if the staff stops him. Matt christina was called. Rusty, supervisor electronics assembly RN redirected the patient, wanted to sit on the chair. Service Unit Operator [employer] talked to via phone and allowed her to come and stay with patient. Tele monitor was not placed back @ this time due to patient's agitation. Patient took off monitors earlier.
[2021-11-22 03:07] VITALS: BP 143/47
[2021-11-22 07:00] VITALS: BP 160/66
[2021-11-22] MEDS: INSULIN LISPRO 300 UNITS/3 ML VIAL. SQ SCH (08:00)
--- NOTE | 2021-11-22 10:11 | PDOC ---
[employer] PROGRESS NOTE Date of Service DOS: DATE: 11/22/21 TIME: 10:10 Chief Complaint Chief Complaint Acute encephalopathy -multifactorial likely postconcussive in addition to taking diphenhydramine. Will check ABG. Frequent redirection. Will rule out infectious etiology. Negative meningeal signs, afebrile. Given it appears to be delerium it is likely reversible cause. Hypercalcemia - notes he has had this problem historically for years. Is on calcium. Has never seen an center medical and lab director. Treat with IV normal saline check PTH and phosphorus if it does not correct. Hyponatremia - possibly due to chlorthalidone, will hold this medication given GUY, confusion. Monitor sodium after IVF resuscitation GUY - likely vasomotor nephropathy possibly medication induced. No CKD per family Abdominal pain -possibly due to urinary retention. Would stop solifenacin and diuretic for now. Leukocytosis -no clear infectious source though with urinary retention and recent orbital fracture we will follow up blood cultures and urine culture and initiate Rocephin. Prostatomegaly - would hold solifenacin in favor of BPH medications instead, will start on flomax. straight cath prn HTN - cont BB, hold losartan for GUY DM2 - A1c 6.1 per . 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 Will check TSH Abnormal CXR - Mild left basilar atelectasis or infiltrate. will check procalcitonin Right inferior orbital fracture - from fall on 11/12/2021. has outpatient follow up with oculoplastics. CT head appears stable FEN - ADA cardiac diet PPX - heparin FULL CODE Dispo - inpatient Names Gia Collins, his , as surrogate decision-maker History of Present Illness History of Present Illness Mr Collins "Nabila" is a 71yo male with PMHx HTN, DM2, HLD, CAD s/p CABG who presents to ED with worsening weakness and confusion at home. He has been progressively more confused since his fall and awakened on 11/16/2021 more confused and his went to the grocery store came back in all of his medications for the week were missing in he said he thinks he threw them on the table and took all of them. He was seen in the ED for fall 3 onto his face at home on 11/12/2021 and had a right orbital floor fracture for which he has followed up with oculoplastics at [facility] per ED. he has been forgetful having difficulty getting dressed and slow to respond. His only complaint ED was abdominal pain. notes he has a strong cardiac family history and had a CABG in 2009 [facility] and had his brother age 45 of cardiac disease. They moved from [place] in 2019 and she has noted his health has been declining since then. He has had increased frequency of falls. She notes is recently as 2017 he had had this problem and is previously been worked up for a CVA she thinks he had an MRI at [facility] previously and was told it was negative for CVA but the family is concerned that he probably did have a stroke sometime in the last several years. Labs WBC 16.2, Hb 13.8, platelets 256, INR 1, rapid influenza and rapid COVID-19 negative COVID-19 PCR negative, NA 133, K3.6, BUN 32, CR 1.5, glucose 157, lactate 1.8, calcium 10.3, albumin 3.7, lipase 377, LFTs within normal la boratory limits, high-sensitivity troponin is 6, urinalysis bland. EKG sinus rhythm rate of 85 bpm with leftward axis no ST segment elevations or depressions no TWI. CT head with no acute abnormality possibly less emphysematous changes and right inferior orbit and chronic. Right basal ganglia infarct. Chest radiograph with paratracheal mass left tracheal displacement CT abdomen pelvis with external iliac artery stenosis hepatic steatosis. Prostatomegaly. Post void residual high with straight catheter had 770 cc urine out. Admitted for further care 11/18: Lab unrevealing for etiology of confusion. Afebrile. More delirious overnight did not sleep pulled out 3 IVs. Basurto catheter placed for recurrent high residual after voiding. does note he has had "short-term memory problems" for several years but has not excellent long-term memory. I discussed the possibility of his concussion along with taking Vesicare may be uncovering an underlying dementia. She is amenable to looking into skilled rehab options. Awaiting B12 and PTH levels 11/19, much more alert today, mental status better, eating Ok,, still too weak to go home, he is aware of some dementia problems and is very calm about it 11/20, walked wtll with PT yesterday, but cannot get himself up in bed this AM to eat. trouble with transfers, kalyn not safe at home cont PT, will discuss wth , mental status much better again today he cannot recall me well, I spoke to him almost 20 min yesterday 11/21, can wakl well, still cannot transfer, needs a lot fo help sitting up in bed, mental status better with meds chagned, plan skilled, his has a bad back and cannot assist well at home, they have limited stairs, [facility] 11/22, has been calm for days, no agitation, very compliant with care and works well with PT and OT, can walk well once up, but has great difficulty in transfer, needs assist sitting up in bed, mental status has been good for me since the Vitals/I&O Vitals/I&O: Vital Signs Date Time Temp Pulse Resp B/P (MAP) Pulse Ox O2 Delivery O2 Flow Rate FiO2 11/22/21 07:00 98.0 81 18 160/66 (97) 95 98.0 11/22/21 03:07 Room Air I & O 11/21/21 11/21/21 11/22/21 15:00 23:00 07:00 Intake Total 120 ml 120 ml Output Total 1200 ml Balance -1080 ml 120 ml Physical Exam General: Alert, Cooperative, No acute distress, Other (not oriented ) Heart: Regular rate Lungs: Clear Abdomen: Normal bowel sounds, Soft, No tenderness, No hepatosplenomegaly, No masses Extremities: No clubbing, No cyanosis, No edema, Normal pulses, No tenderness/swelling Skin: No rashes, No breakdown, No significant lesion Labs Labs: Laboratory Tests Test 11/21/21 10:47 11/21/21 16:57 11/22/21 07:28 Glucose (Fingerstick) 149 mg/dL (70-99) 109 mg/dL (70-99) 124 mg/dL (70-99) Assessment and Plan Assessmemt and Plan Problems Medical Problems: (1) Acute encephalopathy Status: Acute (2) Acute renal insufficiency Status: Acute (3) Chest mass Status: Acute (4) Right orbital fracture Status: Acute Comment Review of Relevant I have reviewed the following items nabila (where applicable) has been applied. Medications: Current Medications Medications (Trade) Dose Ordered Sig/Lynn Route PRN Reason Start Time Stop Time Status Last Admin Dose Admin Docusate Sodium (Colace) 100 mg DAILY PO 11/21/21 12:45 11/21/21 13:10 Polyethylene Glycol (miraLAX PACKET) 17 gm 1X ONCE PO 11/21/21 12:45 11/21/21 12:50 DC 11/21/21 13:10 Justifications for Admission Other Justification GLENDA SALDANA MD Nov 22, 2021 10:11
--- NOTE | 2021-11-22 10:54 | PDOC ---
PROGRESS NOTES Date of Service DATE: 11/22/21 TIME: 10:52 Assessment Problems Medical Problems: (1) Acute encephalopathy Status: Acute (2) Acute renal insufficiency Status: Acute (3) Chest mass Status: Acute (4) Right orbital fracture Status: Acute Increasing dementia, actually time course is over a few years not just recently. The grasp reflexes are evidence of a chronic dementia. Concussion contributes to the worsening, and he is already improving Sundowning better Recent fall with orbital fracture, concussion Old right basal ganglia lacunar infarcts, which are not a cause of the current clinical situation Peripheral neuropathy, probably diabetic Multifactorial gait disorder Note hyponatremia, renal insufficiency, hyperglycemia, hypercalcemia, normal TSH, but has a goiter Laboratory studies for reversible causes of dementia and neuropathy negative Favorable lipid profile Plan Needs SNU placement, cannot handle him at home Reevaluate as outpatient for dementia, see me or my BRACE MAKER in 6 weeks, consider trial of donepezil at that time Fully discussed with patient and his Subjective No complaints, feeling better Objective Vital Signs Date Time Temp Pulse Resp B/P (MAP) Pulse Ox O2 Delivery O2 Flow Rate FiO2 11/22/21 07:00 98.0 81 18 160/66 (97) 95 98.0 11/22/21 03:07 Room Air Intake and Output 11/22/21 07:00 Intake Total 240 ml Output Total 1200 ml Balance -960 ml Intake Oral 240 ml Output Urine Total 1200 ml # Voids 4 # Bowel Movements 1 PHYSICAL EXAM Alert. Lying in bed, knows date and location PERRL. EOMI. CN: no focal findings. Muscle tone: normal. Muscle strength: 5/5 DTR: 1+ Bilateral grasp reflexes Plantar reflex: Flexor Gait: not examined in bed. Sensory exam: no abnormal findings. No cerebellar signs elicited. Review of Relevant I have reviewed the following items nabila (where applicable) has been applied. Labs Laboratory Tests Test 11/20/21 11:17 11/20/21 16:17 11/20/21 20:39 11/21/21 07:37 Glucose (Fingerstick) 149 mg/dL (70-99) 147 mg/dL (70-99) 130 mg/dL (70-99) 125 mg/dL (70-99) Test 11/21/21 10:47 11/21/21 16:57 11/22/21 07:28 Glucose (Fingerstick) 149 mg/dL (70-99) 109 mg/dL (70-99) 124 mg/dL (70-99) Laboratory Tests Test 11/21/21 16:57 11/22/21 07:28 Glucose (Fingerstick) 109 mg/dL (70-99) 124 mg/dL (70-99) Microbiology 11/17/21 Blood Culture - Final, Complete NO GROWTH AFTER 5 DAYS Medications Current Medications Ondansetron HCl (Zofran) 4 mg 1X ONCE IVP Last administered on 11/17/21at 01:26; Start 11/17/21 at 01:30; Stop 11/17/21 at 01:31; Status DC Sodium Chloride 1,000 ml @ 1,000 mls/hr 1X ONCE IV Last administered on 11/17/21at 01:25; Start 11/17/21 at 01:30; Stop 11/17/21 at 02:29; Status DC Iohexol (Omnipaque 300 Mg/ml) 60 ml 1X ONCE IV ; Start 11/17/21 at 02:30; Stop 11/17/21 at 02:31; Status DC Info (CONTRAST GIVEN -- Rx MONITORING) 1 each PRN DAILY PRN MC SEE COMMENTS; Start 11/17/21 at 02:00; Stop 11/19/21 at 01:59; Status DC Prochlorperazine Edisylate (Compazine) 10 mg 1X ONCE IV Last administered on 11/17/21at 02:18; Start 11/17/21 at 02:30; Stop 11/17/21 at 02:31; Status DC Diphenhydramine HCl (Benadryl) 25 mg 1X ONCE IVP Last administered on 11/17/21at 02:18; Start 11/17/21 at 02:30; Stop 11/17/21 at 02:31; Status DC Sodium Chloride 500 ml @ 500 mls/hr 1X ONCE IV Last administered on 11/17/21at 04:55; Start 11/17/21 at 03:00; Stop 11/17/21 at 03:59; Status DC Ondansetron HCl (Zofran) 4 mg PRN Q8HRS PRN IVP NAUSEA/VOMITING 1ST CHOICE; Start 11/17/21 at 06:30; Stop 11/17/21 at 12:32; Status DC Sodium Chloride 1,000 ml @ 85 mls/hr [id number] IV Last administered on 11/18/21at 20:48; Start 11/17/21 at 07:00; Stop 11/19/21 at 06:03; Status DC Acetaminophen (Tylenol) 650 mg PRN Q4HRS PRN PO FEVER > 100.3'F; Start 11/17/21 at 06:30; Stop 11/17/21 at 12:32; Status DC Ondansetron HCl (Zofran) 4 mg PRN Q4HRS PRN IVP NAUSEA/VOMITING 1ST CHOICE; Start 11/17/21 at 12:30 Acetaminophen (Tylenol) 650 mg PRN Q6HRS PRN PO FEVER > 100.3'F Last administered on 11/17/21at 20:27; Start 11/17/21 at 12:30 Olanzapine (ZyPREXA ZYDIS) 5 mg PRN BID PRN PO ANXIETY / AGITATION Last administered on 11/18/21at 20:48; Start 11/17/21 at 14:30 Carvedilol (Coreg) 12.5 mg BIDWMEALS PO Last administered on 11/21/21at 17:45; Start 11/17/21 at 17:00 Vitamin D (Vitamin D3) 2,000 unit DAILY PO Last administered on 11/21/21at 09:08; Start 11/18/21 at 09:00 Non-Formulary Medication (Ubidecarenone (Coenzyme Q10)) 1 tab DAILY PO ; Start 11/18/21 at 09:00; Stop 11/17/21 at 15:02; Status DC Insulin Human Lispro (HumaLOG) 0-9 UNITS TIDWMEALS SQ ; Start 11/17/21 at 17:00 Dextrose (Dextrose 50%-Water Syringe) 12.5 gm PRN Q15MIN PRN IV SEE COMMENTS; Start 11/17/21 at 15:30 Tamsulosin HCl (Flomax) 0.4 mg QHS PO Last administered on 11/20/21at 21:20; Start 11/17/21 at 21:00 Ceftriaxone Sodium (Rocephin) 1 gm Q24H IVP Last administered on 11/21/21at 17:45; Start 11/17/21 at 16:00 Aspirin (Ecotrin) 81 mg DAILYWBKFT PO Last administered on 11/21/21at 09:07; Start 11/17/21 at 17:00 Ziprasidone (Geodon Im) 10 mg 1X ONCE IM ; Start 11/18/21 at 04:30; Stop 11/18/21 at 04:31; Status DC Potassium Chloride (Klor-Con) 40 meq 1X ONCE PO Last administered on 11/18/21at 12:40; Start 11/18/21 at 09:00; Stop 11/18/21 at 09:01; Status DC Lactobacillus Rhamnosus (Culturelle) 1 cap BID PO Last administered on 11/20/21at 21:20; Start 11/18/21 at 21:00 Simethicone (Gas-X) 80 mg PRN AFTMEALHC PRN PO GAS / BLOATING Last administered on 11/21/21at 09:07; Start 11/19/21 at 13:45 Docusate Sodium (Colace) 100 mg DAILY PO Last administered on 11/21/21at 13:10; Start 11/21/21 at 12:45 Polyethylene Glycol (miraLAX PACKET) 17 gm PRN DAILY PRN PO CONSTIPATION; Start 11/21/21 at 12:45 Polyethylene Glycol (miraLAX PACKET) 17 gm 1X ONCE PO Last administered on 11/21/21at 13:10; Start 11/21/21 at 12:45; Stop 11/21/21 at 12:50; Status DC Magnesium Hydroxide (Milk Of Magnesia) 2,400 mg PRN DAILY PRN PO CONSTIPATION; Start 11/21/21 at 12:45 Active Scripts Active Cephalexin 500 Mg Tablet 1 Tab PO BID 7 Days Reported Vesicare (Solifenacin Succinate) 5 Mg Tablet 1 Tab PO DAILY 30 Days Chlorthalidone (Chlorthalidone) 25 Mg Tablet 25 Mg PO DAILY Zetia (Ezetimibe) 10 Mg Tablet 1 Tab PO DAILY 30 Days Vitamin D3 (Vitamin D) 25 Mcg Tablet 50 Mcg PO DAILY 1,000 UNITS = 25 MCG Losartan Potassium 100 Mg Tablet 100 Mg PO DAILY Carvedilol (Carvedilol) 12.5 Mg Tablet 12.5 Mg PO BIDWMEALS Coenzyme Q10 (Ubidecarenone) 100 Mg Tablet 1 Tab PO DAILY 30 Days Metformin Hcl 500 Mg Tablet 500 Mg PO DAILY Vitals/I & O Vital Sign - Last 24 Hours 11/21/21 11/21/21 11/21/21 11/21/21 11:00 15:00 17:45 19:38 Temp 98.9 98.4 98.4 98.9 98.4 98.4 Pulse 77 87 87 75 Resp 18 18 16 B/P (MAP) 101/71 (81) 108/63 (78) 141/86 160/68 (98) Pulse Ox 94 99 91 O2 Delivery Room Air 11/21/21 11/21/21 11/22/21 11/22/21 20:00 22:43 03:07 07:00 Temp 98.2 98.5 98.0 98.2 98.5 98.0 Pulse 84 78 81 Resp 16 18 18 B/P (MAP) 140/70 (93) 143/47 (79) 160/66 (97) Pulse Ox 94 95 95 O2 Delivery Room Air Room Air Room Air Intake and Output 11/21/21 11/21/21 11/22/21 15:00 23:00 07:00 Intake Total 120 ml 120 ml Output Total 1200 ml Balance -1080 ml 120 ml Justicifation of Admission Dx: Justifications for Admission: Justification of Admission Dx: N/A NATALIA ARNDT MD Nov 22, 2021 10:54
[2021-11-22 11:00] VITALS: BP 148/89
[2021-11-22] MEDS: CHOLECALCIFEROL (VITAMIN D3) 1,000 UNIT TABLET PO SCH (11:21)
[2021-11-22] MEDS: CARVEDILOL 12.5 MG TABLET. PO SCH ×2 (11:21→17:23)
[2021-11-22] MEDS: LACTOBACILLUS RHAMNOSUS GG 1 CAPSULE. PO SCH ×2 (11:21→21:46)
[2021-11-22] MEDS: DOCUSATE SODIUM 100 MG CAPSULE. PO SCH (11:21)
[2021-11-22] MEDS: ASPIRIN ENTERIC COATED 81 MG TABLET.DR. PO SCH (11:21)
[2021-11-22] MEDS ORDERED: TAMS0.4C97 PO (12:09)
--- NOTE | 2021-11-22 13:08 | RAD ---
EXAM: Right foot, 3 views. HISTORY: Pain. Fall. COMPARISON: None. FINDINGS: 3 views of the right foot are obtained. There is no fracture, dislocation or subluxation. T here is a small plantar spur. IMPRESSION: Small plantar spur. No acute osseous finding. Electronically signed by: Samantha García MD (11/22/2021 1:06 PM) [id number]
[2021-11-22 15:00] VITALS: BP 157/71
[2021-11-22 15:15] LABS: ALBUM 3.5 g/dL (2.9-4.4); ALPHA 1 0.3 g/dL (0.0-0.4); ALPHA 2 0.8 g/dL (0.4-1.0); PROTEIN TOTAL 6.6 g/dL (6.0-8.5); SPEP AG RATIO 1.1 (0.7-1.7)
--- NOTE | 2021-11-22 16:25 | NUR ---
SW following. Discussed with RN, pt from home with , room air, cardiac diet. Therapy recommending SNF. SW to speak pt's tomorrow to discuss discharge planning. COVID-19 negative. SW will continue to follow.
[2021-11-22] MEDS: cefTRIAXone IV Push 1 GM VIAL. IVP SCH (17:28)
[2021-11-22 19:00] VITALS: BP 144/58
[2021-11-22] MEDS: TAMSULOSIN 0.4 MG CAP.ER.24H. PO SCH (21:46)
[2021-11-22 23:00] VITALS: BP 150/59
[2021-11-22 23:10] LABS: ANA INTERP Negative (.)
[2021-11-23 03:00] VITALS: BP 139/61
[2021-11-23 07:00] VITALS: BP 140/64
[2021-11-23] MEDS: LACTOBACILLUS RHAMNOSUS GG 1 CAPSULE. PO SCH (09:13)
[2021-11-23] MEDS: DOCUSATE SODIUM 100 MG CAPSULE. PO SCH (09:13)
[2021-11-23] MEDS: CHOLECALCIFEROL (VITAMIN D3) 1,000 UNIT TABLET PO SCH (09:13)
[2021-11-23] MEDS: CARVEDILOL 12.5 MG TABLET. PO SCH (09:14)
[2021-11-23] MEDS: ASPIRIN ENTERIC COATED 81 MG TABLET.DR. PO SCH (09:14)
--- NOTE | 2021-11-23 10:28 | PDOC ---
PROGRESS NOTES Date of Service DATE: 11/23/21 TIME: 10:26 Assessment Problems Medical Problems: (1) Acute encephalopathy Status: Acute (2) Acute renal insufficiency Status: Acute (3) Chest mass Status: Acute (4) Right orbital fracture Status: Acute Increasing dementia, actually time course is over a few years not just recently. The grasp reflexes are evidence of a chronic dementia. Concussion contributes to the worsening, and he is already improving Sundowning better Recent fall with orbital fracture, concussion Old right basal ganglia lacunar infarcts, which are not a cause of the current clinical situation Peripheral neuropathy, probably diabetic Multifactorial gait disorder Note hyponatremia, renal insufficiency, hyperglycemia, hypercalcemia, normal TSH, but has a goiter Laboratory studies for reversible causes of dementia and neuropathy negative Favorable lipid profile Left foot pain better, x-ray was negative Plan Needs SNU placement, cannot handle him at home Reevaluate as outpatient for dementia, see me or my CORRECTIONAL MEDICINE PHYSICIAN in 6 weeks, consider trial of donepezil at that time Fully discussed with patient and his Subjective No complaints Objective Vital Signs Date Time Temp Pulse Resp B/P (MAP) Pulse Ox O2 Delivery O2 Flow Rate FiO2 11/23/21 09:14 76 140/64 11/23/21 07:00 98.5 20 95 Room Air 98.5 Intake and Output 11/23/21 07:00 Output Total 0 ml Balance 0 ml Output Urine Total 0 ml # Voids 6 PHYSICAL EXAM Alert, knows date and location PERRL. EOMI. CN: no focal findings. Muscle tone: normal. Muscle strength: 5/5 DTR: 1+ Bilateral grasp reflexes Plantar reflex: Flexor Gait: He was out of bed when I came into the room, impulsive, gait is apraxic Sensory exam: no abnormal findings. No cerebellar signs elicited. Review of Relevant I have reviewed the following items nabila (where applicable) has been applied. Labs Laboratory Tests Test 11/21/21 10:47 11/21/21 16:57 11/22/21 07:28 11/22/21 11:15 Glucose (Fingerstick) 149 mg/dL (70-99) 109 mg/dL (70-99) 124 mg/dL (70-99) 126 mg/dL (70-99) Test 11/22/21 16:48 11/22/21 21:49 11/23/21 07:35 Glucose (Fingerstick) 111 mg/dL (70-99) 121 mg/dL (70-99) 132 mg/dL (70-99) Laboratory Tests Test 11/22/21 11:15 11/22/21 16:48 11/22/21 21:49 11/23/21 07:35 Glucose (Fingerstick) 126 mg/dL (70-99) 111 mg/dL (70-99) 121 mg/dL (70-99) 132 mg/dL (70-99) Microbiology 11/17/21 Blood Culture - Final, Complete NO GROWTH AFTER 5 DAYS Medications Current Medications Ondansetron HCl (Zofran) 4 mg 1X ONCE IVP Last administered on 11/17/21at 01:26; Start 11/17/21 at 01:30; Stop 11/17/21 at 01:31; Status DC Sodium Chloride 1,000 ml @ 1,000 mls/hr 1X ONCE IV Last administered on 1 01/18/21at 01:25; Start 11/17/21 at 01:30; Stop 11/17/21 at 02:29; Status DC Iohexol (Omnipaque 300 Mg/ml) 60 ml 1X ONCE IV ; Start 11/17/21 at 02:30; Stop 11/17/21 at 02:31; Status DC Info (CONTRAST GIVEN -- Rx MONITORING) 1 each PRN DAILY PRN MC SEE COMMENTS; Start 11/17/21 at 02:00; Stop 11/19/21 at 01:59; Status DC Prochlorperazine Edisylate (Compazine) 10 mg 1X ONCE IV Last administered on 11/17/21at 02:18; Start 11/17/21 at 02:30; Stop 11/17/21 at 02:31; Status DC Diphenhydramine HCl (Benadryl) 25 mg 1X ONCE IVP Last administered on 11/17/21at 02:18; Start 11/17/21 at 02:30; Stop 11/17/21 at 02:31; Status DC Sodium Chloride 500 ml @ 500 mls/hr 1X ONCE IV Last administered on 11/17/21at 04:55; Start 11/17/21 at 03:00; Stop 11/17/21 at 03:59; Status DC Ondansetron HCl (Zofran) 4 mg PRN Q8HRS PRN IVP NAUSEA/VOMITING 1ST CHOICE; Start 11/17/21 at 06:30; Stop 11/17/21 at 12:32; Status DC Sodium Chloride 1,000 ml @ 85 mls/hr [id number] IV Last administered on 11/18/21at 20:48; Start 11/17/21 at 07:00; Stop 11/19/21 at 06:03; Status DC Acetaminophen (Tylenol) 650 mg PRN Q4HRS PRN PO FEVER > 100.3'F; Start 11/17/21 at 06:30; Stop 11/17/21 at 12:32; Status DC Ondansetron HCl (Zofran) 4 mg PRN Q4HRS PRN IVP NAUSEA/VOMITING 1ST CHOICE; Start 11/17/21 at 12:30 Acetaminophen (Tylenol) 650 mg PRN Q6HRS PRN PO FEVER > 100.3'F Last administered on 11/17/21at 20:27; Start 11/17/21 at 12:30 Olanzapine (ZyPREXA ZYDIS) 5 mg PRN BID PRN PO ANXIETY / AGITATION Last administered on 11/18/21at 20:48; Start 11/17/21 at 14:30 Carvedilol (Coreg) 12.5 mg BIDWMEALS PO Last administered on 11/23/21at 09:14; Start 11/17/21 at 17:00 Vitamin D (Vitamin D3) 2,000 unit DAILY PO Last administered on 11/23/21at 09:13; Start 11/18/21 at 09:00 Non-Formulary Medication (Ubidecarenone (Coenzyme Q10)) 1 tab DAILY PO ; Start 11/18/21 at 09:00; Stop 11/17/21 at 15:02; Status DC Insulin Human Lispro (HumaLOG) 0-9 UNITS TIDWMEALS SQ ; Start 11/17/21 at 17:00; Stop 11/22/21 at 12:06; Status DC Dextrose (Dextrose 50%-Water Syringe) 12.5 gm PRN Q15MIN PRN IV SEE COMMENTS; Start 11/17/21 at 15:30 Tamsulosin HCl (Flomax) 0.4 mg QHS PO Last administered on 11/22/21at 21:46; Start 11/17/21 at 21:00 Ceftriaxone Sodium (Rocephin) 1 gm Q24H IVP Last administered on 11/22/21at 17:28; Start 11/17/21 at 16:00 Aspirin (Ecotrin) 81 mg DAILYWBKFT PO Last administered on 11/23/21at 09:14; Start 11/17/21 at 17:00 Ziprasidone (Geodon Im) 10 mg 1X ONCE IM ; Start 11/18/21 at 04:30; Stop 11/18/21 at 04:31; Status DC Potassium Chloride (Klor-Con) 40 meq 1X ONCE PO Last administered on 11/18/21at 12:40; Start 11/18/21 at 09:00; Stop 11/18/21 at 09:01; Status DC Lactobacillus Rhamnosus (Culturelle) 1 cap BID PO Last administered on 11/23/21at 09:13; Start 11/18/21 at 21:00 Simethicone (Gas-X) 80 mg PRN AFTMEALHC PRN PO GAS / BLOATING Last administered on 11/21/21at 09:07; Start 11/19/21 at 13:45 Docusate Sodium (Colace) 100 mg DAILY PO Last administered on 11/23/21at 09:13; Start 11/21/21 at 12:45 Polyethylene Glycol (miraLAX PACKET) 17 gm PRN DAILY PRN PO CONSTIPATION, 1ST CHOICE; Start 11/21/21 at 12:45 Polyethylene Glycol (miraLAX PACKET) 17 gm 1X ONCE PO Last administered on 11/21/21at 13:10; Start 11/21/21 at 12:45; Stop 11/21/21 at 12:50; Status DC Magnesium Hydroxide (Milk Of Magnesia) 2,400 mg PRN DAILY PRN PO CONSTIPATION, 2ND CHOICE; Start 11/21/21 at 12:45 Active Scripts Active Flomax (Tamsulosin Hcl) 0.4 Mg Cap.er.24h 0.4 Mg PO QHS Reported Chlorthalidone (Chlorthalidone) 25 Mg Tablet 25 Mg PO DAILY Zetia (Ezetimibe) 10 Mg Tablet 1 Tab PO DAILY 30 Days Vitamin D3 (Vitamin D) 25 Mcg Tablet 50 Mcg PO DAILY 1,000 UNITS = 25 MCG Losartan Potassium 100 Mg Tablet 100 Mg PO DAILY Carvedilol (Carvedilol) 12.5 Mg Tablet 12.5 Mg PO BIDWMEALS Coenzyme Q10 (Ubidecarenone) 100 Mg Tablet 1 Tab PO DAILY 30 Days Metformin Hcl 500 Mg Tablet 500 Mg PO DAILY Vitals/I & O Vital Sign - Last 24 Hours 11/22/21 11/22/21 11/22/21 11/22/21 11:00 11:21 15:00 17:23 Temp 98.4 98.2 98.4 98.2 Pulse 92 81 70 70 Resp 21 18 B/P (MAP) 148/89 (108) 160/66 157/71 (99) 157/71 Pulse Ox 95 93 11/22/21 11/22/21 11/22/21 11/23/21 19:00 20:00 23:00 03:00 Temp 98.9 98.1 98.1 98.9 98.1 98.1 Pulse 82 81 77 Resp 16 21 20 B/P (MAP) 144/58 (86) 150/59 (89) 139/61 (87) Pulse Ox 94 96 96 O2 Delivery Room Air Room Air Room Air Room Air 11/23/21 11/23/21 07:00 09:14 Temp 98.5 98.5 Pulse 76 76 Resp 20 B/P (MAP) 140/64 (89) 140/64 Pulse Ox 95 O2 Delivery Room Air Intake and Output 11/22/21 11/22/21 11/23/21 15:00 23:00 07:00 Output Total 0 ml Balance 0 ml Justicifation of Admission Dx: Justifications for Admission: Justification of Admission Dx: N/A NATALIA ARNDT MD Nov 23, 2021 10:27
[2021-11-23 11:00] VITALS: BP 131/71
--- NOTE | 2021-11-23 11:00 | NUR ---
[facility] following. Discussed with RN, ILBIA met with pt's , Carolyn at bedside. Carolyn really wanting SNF. LIBIA explained the potential difficulty in finding a facility to accept due to hx of pt's behaviors. LIBIA prepared Carolyn for taking pt home with home health if facility cannot be found or if insurance denies SNF. No preference of facility, LIBIA explained facilities will be tried that are in network with insurance. Referral faxed to [facility] and awaiting fax to clear to try other facilities. [facility] declined to take pt due to behaviors. LIBIA will continue to follow. Addendum: 11/23/21 at 1552 by LAURE REZA Insurance approved transfer to SNF. Transportation arranged by [facility] for 1600. RN and family notified. Discharge orders faxed.
[2021-11-23] MEDS: SIMETHICONE 80 MG TAB.CHEW PO PRN (12:05)
--- NOTE | 2021-11-23 13:11 | PDOC ---
[facility] [facility] PROGRESS NOTE Date of Service DOS: DATE: 11/23/21 TIME: 13:08 Chief Complaint Chief Complaint Acute encephalopathy -multifactorial on admit, much better, Hypercalcemia - stable Hyponatremia - due to chlorthalidone, better GUY - vasomotor nephropathy p - better Abdominal pain due to urinary retention. Leukocytosis -no clear infectious source though with urinary retention and recent orbital fracture we will follow up blood cultures and urine culture and initiate Rocephin. Prostatomegaly - hold solifenacin in favor of BPH med started on flomax. HTN - c DM2 - A1c 6.1 per . On losartan and metformin, will hold both for GUY HLD - statin indicated for CAD history, DM2 CAD s/p CABG - on coreg, losartan Goiter - OK FEN - ADA cardiac diet PPX - heparin FULL CODE Dispo - inpatient Names Gia Collins, his , as surrogate decision-maker History of Present Illness History of Present Illness 11/23, mental status great, has been calm for days, no agitation, very compliant with care and works well with PT and OT, struggles with getting up in bed, but can walk well once up, but has great difficulty in transfer, needs assist sitting up in bed, mental status has been good for me since the Vitals/I&O Vitals/I&O: Vital Signs Date Time Temp Pulse Resp B/P (MAP) Pulse Ox O2 Delivery O2 Flow Rate FiO2 11/23/21 11:00 98.0 76 19 131/71 (91) 95 Room Air 98.0 I & O 11/22/21 11/22/21 11/23/21 15:00 23:00 07:00 Output Total 0 ml Balance 0 ml Physical Exam General: Alert, Cooperative, No acute distress, Other (not oriented ) Heart: Regular rate Lungs: Clear Abdomen: Normal bowel sounds, Soft, No tenderness, No hepatosplenomegaly, No masses Extremities: No clubbing, No cyanosis, No edema, Normal pulses, No tenderness/swelling Skin: No rashes, No breakdown, No significant lesion Labs Labs: Laboratory Tests Test 11/22/21 16:48 11/22/21 21:49 11/23/21 07:35 11/23/21 11:54 Glucose (Fingerstick) 111 mg/dL (70-99) 121 mg/dL (70-99) 132 mg/dL (70-99) 123 mg/dL (70-99) Assessment and Plan Assessmemt and Plan Problems Medical Problems: (1) Acute encephalopathy Status: Acute (2) Acute renal insufficiency Status: Acute (3) Chest mass Status: Acute (4) Right orbital fracture Status: Acute Comment Review of Relevant I have reviewed the following items nabila (where applicable) has been applied. Justifications for Admission Other Justification GLENDA SALDANA MD Nov 23, 2021 13:11
[2021-11-23 15:00] VITALS: BP 137/113
--- NOTE | 2021-11-23 15:39 | SNU/HH DC ---
DISCHARGE ORDERS DISCHARGE INFORMATION: DISCHARGE DATE: Nov 23, 2021 FINAL DIAGNOSIS Problems Medical Problems: (1) Acute encephalopathy Status: Acute (2) Acute renal insufficiency Status: Acute (3) Chest mass Status: Acute (4) Right orbital fracture Status: Acute CONDITION ON DISCHARGE: Stable CODE STATUS: Code Status: Full HALF-WAY: SNF STAY <30 DAYS: Yes POST DISCHARGE ORDERS: ACTIVITY ORDERS: Activity as tolerated WEIGHT BEARING STATUS: As tolerated DIET AFTER DISCHARGE: Regular WOUND/INCISION CARE: Ice to area for comfort CHECKS AFTER DISCHARGE: CHECKS AFTER DISCHARGE: Check blood press - daily, Check your Temp as needed TREATMENT/EQUIPMENT ORDERS: Physical Therapy For: Evalulation/Treatment Occupational Therapy For: Evaluation/Treatment DISCHARGE MEDICATIONS: Home Meds Active Scripts Tamsulosin Hcl (FLOMAX) 0.4 Mg Cap.er.24h, 0.4 MG PO QHS for urinary retention, #30 CAP.SR Prov:GLENDA SALDANA MD 11/22/21 Reported Medications Chlorthalidone (CHLORTHALIDONE ) 25 Mg Tablet, 25 MG PO DAILY for DIURETIC, TAB 11/17/21 Ezetimibe (ZETIA) 10 Mg Tablet, 1 TAB PO DAILY for hyperlipidemia for 30 Days, #30 TAB 0 Refills 11/17/21 Cholecalciferol (Vitamin D3) (Vitamin D3 ) 25 Mcg Tablet, 50 MCG PO DAILY for SUPPLEMENT, TAB 1,000 UNITS = 25 MCG 11/17/21 Losartan Potassium (LOSARTAN POTASSIUM) 100 Mg Tablet, 100 MG PO DAILY for HYPERTENSION, TAB 11/17/21 Carvedilol (CARVEDILOL ) 12.5 Mg Tablet, 12.5 MG PO BIDWMEALS for CARDIAC, TAB 11/17/21 Ubidecarenone (COENZYME Q10) 100 Mg Tablet, 1 TAB PO DAILY for supplement for 30 Days, #30 TAB 0 Refills 11/17/21 Metformin Hcl (METFORMIN HCL) 500 Mg Tablet, 500 MG PO DAILY for ANTI-DIABETIC, TAB 0 Refills 11/17/21 Discontinued Reported Medications Solifenacin Succinate (VESICARE) 5 Mg Tablet, 1 TAB PO DAILY for bladder for 30 Days, #30 TAB 0 Refills 11/17/21 Discontinued Scripts Cephalexin (CEPHALEXIN) 500 Mg Tablet, 1 TAB PO BID for 7 Days, #14 TAB Prov:BESSY SINGH 11/12/21 BARRETT ADORNO MD Nov 23, 2021 15:39
--- NOTE | 2021-11-23 16:14 | NUR ---
Discharge Note: BILLIE MEJIA [address] Discharge instructions and discharge home medications reviewed with Brandee TOBAR of [facility] and a copy given to the transport personne. All questions have been answered and understanding verbalized. The following instructions and handouts were given: Fall risk precautions, high fall risk. Home meds as directed Follow up with neuro in 6 weeks, call for appointment. Follow up with PCP in a week. Discontinued lines and drains: peripheral IV intact, patient tolerated removal, no complications noted. Patient discharged to [facility] via wheelchair on RA accompanied by the patient's and transport personnel at [id number].
== END 2021-11-23 16:04 | DRG 70 ==
LOC: ER 01:01 → ED HOLD 05:00 → 5 SOUTH 08:03
PROVIDERS: ADMIT Internal Medicine; ATTEND Internal Medicine
DX: G93.40 Encephalopathy, unspecified (principal); N17.0 Acute kidney failure with tubular necrosis; E87.1 Hypo-osmolality and hyponatremia; S02.31XA Fracture of orbital floor, right side, initial encounter for closed fracture; S06.0X9A Concussion with loss of consciousness of unspecified duration, initial encounter; F05 Delirium due to known physiological condition; D72.829 Elevated white blood cell count, unspecified; E04.9 Nontoxic goiter, unspecified; E11.42 Type 2 diabetes mellitus with diabetic polyneuropathy; E11.65 Type 2 diabetes mellitus with hyperglycemia; E78.5 Hyperlipidemia, unspecified; E83.52 Hypercalcemia; F03.90 Unspecified dementia, unspecified severity, without behavioral disturbance, psychotic disturbance, mood disturbance, and anxiety; H05.89 Other disorders of orbit; I10 Essential (primary) hypertension; I25.10 Atherosclerotic heart disease of native coronary artery without angina pectoris; I35.0 Nonrheumatic aortic (valve) stenosis; I70.8 Atherosclerosis of other arteries; K76.0 Fatty (change of) liver, not elsewhere classified; K80.20 Calculus of gallbladder without cholecystitis without obstruction; N40.1 Benign prostatic hyperplasia with lower urinary tract symptoms; R33.8 Other retention of urine; Z82.49 Family history of ischemic heart disease and other diseases of the circulatory system; Z83.3 Family history of diabetes mellitus; Z87.891 Personal history of nicotine dependence; Z95.1 Presence of aortocoronary bypass graft; K21.9 Gastro-esophageal reflux disease without esophagitis; K59.00 Constipation, unspecified
CPT/HCPCS: 36415; 36600; 70450; 71045; 73630; 74177; 80048; 80053; 80061; 80076; 81001; 82306; 82550; 82607; 82805; 82962; 83036; 83605; 83690; 83970; 84100; 84145; 84165; 84443; 84484; 85007; 85025; 85610; 85651; 85730; 86038; 87040; 87426; 87804; 93005; 96361; 96374; 96375; J0696; J0780; J1200; J1815; J2405; J3486; J7030; J7040; U0003; U0005; 97110-GP; 97116-GP; 97530-GP; 99285-25; G0378